=== PATIENT | male | born 1990 | race Caucasian/White ===

== ENCOUNTER 2023-03-30 16:04 | Inpatient (IN) ==
[2023-03-30] MEDS ORDERED: SODIUM CHLORIDE 0.9% 1000ML 1,000 ML IV STA (16:23)
--- NOTE | 2023-03-30 16:23 | ED Triage Note ---
Date of Service March 30, 2023 History of Present Illness This patient was briefly evaluated while in triage. An abbreviated physical exam was performed. This patient is a 32-year-old Male who presents to the ED for evaluation of severe abdominal pain since yesterday around 10 AM. The patient reports that the pain seems to be focused below the umbilicus. Patient denies any recent trauma or heavy lifting. Patient denies any difficulty with urination. Patient did take some milk of magnesia this morning around 4 AM, with diarrhea around 7 AM Physical Exam CONSTITUTIONAL: Healthy and well nourished. Patient appears in moderate discomfort. HEENT: No scleral icterus or conjunctival injection/pallor. RESPIRATORY: Clear to auscultation bilaterally with no wheezing, crackles, rhonchi or stridor. CARDIOVASCULAR: Regular rate and rhythm with no murmurs, rubs or gallops. GASTROINTESTINAL: Bowel sounds present in all quadrants. Patient has diffuse lower abdominal tenderness to palpation. No obvious McBurney's point tenderness or CVA tenderness. INTEGUMENTARY: No rash or other significant dermatologic conditions noted. HEMATOLOGIC: No ecchymosis or petechiae. PSYCHIATRIC: Positive affect. NEUROLOGIC: No focal neurologic deficits noted. Initial orders for labs and / or imaging were placed and patient was placed in the waiting area until a bed is available. Please see further documentation for the full ED course.
[2023-03-30] MEDS ORDERED: KETOROLAC TROMETHAMINE 15 MG/ML VIAL IV STA (17:22)
[2023-03-30] MEDS ORDERED: ONDANSETRON INJ 2 MG/ML 2 ML VIAL IV STA (17:22)
[2023-03-30 17:49] LABS: Basophils # (auto) 0.06 K/uL (0-0.2); Basophils % (auto) 0.3 %; Eosinophils # (auto) 0.02 K/uL (0-0.50); Eosinophils % (auto) 0.1 %; Hemoglobin 17.8 g/dl (14.0-18.0); Immature Granulocytes # (auto) 0.17 K/uL (0.01-0.20); Immature Granulocytes % (auto) 0.8 %; Lymphocytes # (auto) 1.29 K/uL (1.2-3.4); Lymphocytes % (auto) 6.3 %; Mean Corpuscular Hgb Conc 36.3 g/dL (32.0-36.0); Mean Corpuscular Volume 96.3 fL (80.0-100.0); Mean Platelet Volume 10.8 fL (9.4-12.4); Monocytes # (auto) 2.09 K/uL (0.11-0.59); Monocytes % (auto) 10.1 %; Neutrophils # (auto) 16.97 K/uL (1.40-6.50); Neutrophils % (auto) 82.4 %; Platelet Count 178 K/uL (130-400); RDW Coefficient of Variation 12.7 % (11.5-14.5); RDW Standard Deviation 44.9 fL (36.4-46.3); Red Blood Count 5.09 M/uL (4.70-6.10)
[2023-03-30 18:09] LABS: Albumin Globulin Ratio 1.4 (0.9-2); Albumin Level 4.6 gm/dl (3.4-5.0); BUN Creatinine Ratio 9.8 (10-20); Bilirubin,Total 2.1 mg/dl (0.2-1.0); Creatinine Clr Calc Pharmacy 143.4 ml/min; Est GFR (African American) 128.9 ml/min; Est GFR (Non-African American) 111.2 ml/min; Globulin 3.2 gm/dl (2.5-4.0); Total Protein 7.8 gm/dl (6.0-8.3)
[2023-03-30] MEDS ORDERED: SODIUM CHLORIDE 0.9% 1000ML 1,000 ML IV ONE (18:38)
--- NOTE | 2023-03-30 18:42 | Emergency Department Note ---
History of Present Illness General Chief complaint: Abdominal Pain Stated complaint: ABDOMINAL PAIN Time Seen by Provider: 03/30/23 18:29 History of Present Illness Maximum Pain Intensity: 8 32-year-old male presents emergency department with 1 day history of lower quadrant abdominal pain that started yesterday morning. Patient denies fever he states he did try milk of magnesia today without any relief. He states 1 episode of diarrhea. Patient states anorexia he denies fever denies urinary symptoms denies testicular pain. Patient's had episodes of abdominal pain in the past which were resolved with milk of magnesia. Patient states the pain is located in the lower quadrants rates it as moderate there is no radiation. There are no other mitigating or alleviating factors Allergies Allergy/AdvReac Type Severity Reaction Status Date / Time No Known Allergies Allergy Verified 03/30/23 17:21 Past Med/Surg History Social History Smoking Status: Current every day smoker Feels Safe at Home: Yes Immunizations: Past medical history is hypertension Review of Systems A total of 10 systems reviewed and were otherwise negative Constitutional: no fever Gastrointestinal: + abdominal pain Physical Exam Vital Signs Vital Signs - 24 hr 03/30/23 16:20 03/30/23 18:44 Temperature 36.8 C 37.3 C Temperature Source Temporal Artery Scan Oral Pulse Rate 127 H Pulse Rate [Right Finger] 106 H Pulse Rhythm [Right Finger] Regular Pulse Strength [Right Finger] Normal Respiratory Rate 18 19 Respiratory Effort / Characteristics Non-Labored Spontaneous Non-Labored Spontaneous Respiratory Depth Normal Normal Respiratory Pattern Regular Regular Blood Pressure 148/110 H Blood Pressure [Left Arm] 141/100 H Blood Pressure Mean 122 Blood Pressure Mean [Left Arm] 113 Blood Pressure Position Sitting Blood Pressure Position [Left Arm] Lying Pulse Oximetry 99 95 Oxygen Delivery Method Room Air Room Air Sepsis Recent Fever Within 48 Hours No Sepsis New/Unexplained Change in Mental Status N/A Sepsis Action Taken by Nursing No Action Required GENERAL: Patient is awake alert in no acute distress patient is resting comfortably and showing no signs of anxiety EYES: The conjunctivae are clear. The pupils are round and reactive. EARS, NOSE, MOUTH AND THROAT: The nose is without any evidence of any deformity. Mucous membranes are moist. Tongue is midline. NECK: The neck is nontender and supple. RESPIRATORY: Normal respiratory effort is noted there is no evidence of wheezing rhonchi or rales CARDIOVASCULAR: Regular rate and rhythm noted there no murmurs rubs or gallops normal S1 normal S2. GASTROINTESTINAL: The abdomen is soft. Abdomen is tender in the bilateral lower quadrants there is no rebound rigidity or guarding or bowel sounds present BACK: No midline tenderness or or step-off noted range of motion in flexion extension as well as rotation no signs of muscle spasm noted MUSCULOSKELETAL/EXTREMITIES: There is no evidence of gross deformity full range of motion is noted in the hips and shoulders. SKIN: There is no obvious evidence of any rash. There are no petechiae, pallor or cyanosis noted. NEUROLOGIC: Patient is awake alert and oriented x3 strength is symmetric Course Consultations Consultation #1: Case was discussed with Thuy from surgery they will see the patient in consultation Time: 19:24 Consultation #2: [facility]: 19:24 Administered Medications Sodium Chloride (Nss 1000ml) 1,000 mls @ 999 mls/hr IV .Q1H1M ONE Stop: 03/30/23 19:38 Last Admin: 03/30/23 18:47 Dose: 999 mls/hr Documented By: ELIZABETH Discontinued Medications Sodium Chloride (Nss 1000ml) 1,000 mls @ 999 mls/hr IV .Q1H1M STA Stop: 03/30/23 17:23 Last Admin: 03/30/23 18:46 Dose: Not Given Documented By: ELIZABETH Ioversol (Optiray 320 100ml) 93 ml IV ONCE ONE Stop: 03/30/23 19:02 Last Admin: 03/30/23 19:02 Dose: 93 ml Documented By: MARCIO Ketorolac Tromethamine (Ketorolac Tromethamine 15 Mg/Ml Vial) 15 mg IV NOW STA Stop: 03/30/23 17:23 Last Admin: 03/30/23 17:26 Dose: 15 mg Documented By: SHAWN Ondansetron HCl (Ondansetron Inj 2 Mg/Ml 2 Ml Vial) 4 mg IV NOW STA Stop: 03/30/23 17:23 Last Admin: 03/30/23 17:25 Dose: 4 mg Documented By: SHAWN Medical Decision Making Medical Records Attestation: I reviewed the patient's medical records. Home Medications Current Medication List: was personally reviewed by me Laboratory Data Attestation: I reviewed the patient's lab results. Patient has leukocytosis as interpreted by me 03/30/23 17:22 03/30/23 17:22 Lab Results 03/30/23 03/30/23 Range/Units 17:22 17:22 WBC 20.60 H (4.8-10.8) K/ul RBC 5.09 (4.70-6.10) M/uL Hgb 17.8 (14.0-18.0) g/dl Hct 49.0 (42.0-52.0) % MCV 96.3 (80.0-100.0) fL MCH 35.0 H (25.0-34.0) pg MCHC 36.3 H (32.0-36.0) g/dL RDW Std Deviation 44.9 (36.4-46.3) fL RDW Coeff of Urmila 12.7 (11.5-14.5) % Plt Count 178 (130-400) K/uL MPV 10.8 (9.4-12.4) fL Immature Gran % (Auto) 0.8 % Neut % (Auto) 82.4 % Lymph % (Auto) 6.3 % Cass % (Auto) 10.1 % Eos % (Auto) 0.1 % Baso % (Auto) 0.3 % Neut # (Auto) 16.97 H (1.40-6.50) K/uL Lymph # (Auto) 1.29 (1.2-3.4) K/uL Cass # (Auto) 2.09 H (0.11-0.59) K/uL Eos # (Auto) 0.02 (0-0.50) K/uL Baso # (Auto) 0.06 (0-0.2) K/uL Immature Gran # (Auto) 0.17 (0.01-0.20) K/uL Sodium 132 L (136-145) mmol/L Potassium 4.0 (3.5-5.1) mmol/L Chloride 97 L (98-107) mmol/L Carbon Dioxide 25 (21-32) mmol/L Anion Gap 10 (3-11) BUN 9 (6-23) mg/dl Creatinine 0.92 (0.6-1.4) mg/dl Est Cr Clr Drug Dosing 143.4 ml/min Est GFR ( Amer) 128.9 ml/min Est GFR (Non-Af Amer) 111.2 ml/min BUN/Creatinine Ratio 9.8 L (10-20) Glucose 109 H (70-99(Fasting)) mg/dl Calcium 10.0 (8.6-10.3) mg/dl Total Bilirubin 2.1 H (0.2-1.0) mg/dl AST 14 (13-39) U/L ALT 27 (7-52) U/L Alkaline Phosphatase 66 (34-104) U/L Total Protein 7.8 (6.0-8.3) gm/dl Albumin 4.6 (3.4-5.0) gm/dl Globulin 3.2 (2.5-4.0) gm/dl Albumin/Globulin Ratio 1.4 (0.9-2) Lipase 3 L (11-82) U/L Imaging Data Radiologist's Impression: Abdomen/Pelvis CT 03/30/23 16:23 CR Exam(s): CT ABDOMEN + PELVIS With Contrast IV Amt: 93ml EXAM: CT Abdomen and Pelvis With Intravenous Contrast CLINICAL HISTORY: Reason for exam: Lower abd pain. TECHNIQUE: Axial computed tomography images of the abdomen and pelvis with intravenous contrast. CTDI is 27.21 mGy and DLP is 1559.19 mGy-cm. Automated exposure control was utilized for the study. A dose lowering technique was utilized adhering to the principles of ALARA. CONTRAST: Patient received 93ml of IV contrast COMPARISON: None. FINDINGS: Lung bases: Unremarkable. No mass. No consolidation. ABDOMEN: Liver: Unremarkable. No mass. Gallbladder and bile ducts: Unremarkable. No calcified stones. No ductal dilation. Pancreas: Unremarkable. No mass. No ductal dilation. Spleen: Unremarkable. No splenomegaly. Adrenals: Unremarkable. No mass. Kidneys and ureters: Unremarkable. No solid mass. No hydronephrosis. Stomach and bowel: Acute diverticulitis of the mid sigmoid colon with wall thickening and pericolic fat stranding. Evidence of microperforation with small foci of gas in the adjacent sigmoid mesentery. Left hemicolon diverticulosis. No bowel obstruction. PELVIS: Appendix: Normal appendix. Bladder: Unremarkable. No mass. Reproductive: Unremarkable as visualized. ABDOMEN and PELVIS: Intraperitoneal space: Trace free air and ascites in the lower abdomen and pelvis related to diverticulitis. No abscess. Bones/joints: No acute fracture. No dislocation. Soft tissues: Unremarkable. Vasculature: Unremarkable. No abdominal aortic aneurysm. Lymph nodes: Unremarkable. No enlarged lymph nodes. IMPRESSION: Acute diverticulitis of the mid sigmoid colon with wall thickening and pericolic fat stranding. Evidence of microperforation with small foci of gas in the adjacent sigmoid mesentery. No drainable abscess. Communications: Call Doctor Other Electronically signed by: Sidney Castanon M.D. 03/30/23 19:13 PM MDM Narrative Medical decision making differential diagnosis includes appendicitis, colitis, gastroenteritis, metabolic derangement, dehydration, electrolyte abnormality Plan is to check labs, CT abdomen pelvis, IV fluids, patient was given Toradol Labs were initiated under provider in triage protocols. Patient is currently pending a CT at 1842 Impression & Plan Perforation of sigmoid colon due to diverticulitis Discharge Plan Visit Data Chief Complaint: Abdominal Pain Stated Complaint: ABDOMINAL PAIN ED Provider: Marin Calhoun Discharge Problem: Perforation of sigmoid colon due to diverticulitis Patient Disposition: Admitted As Inpatient Forms Stand Alone Forms: [facility] Referrals Referrals: PCP,NO [Physician] -
[2023-03-30] MEDS ORDERED: OPTIRAY 320 100ml IV ONE (19:01)
--- NOTE | 2023-03-30 19:15 | CT Scan Report ---
Exam(s): CT ABDOMEN + PELVIS With Contrast IV Amt: 93ml EXAM: CT Abdomen and Pelvis With Intravenous Contrast CLINICAL HISTORY: Reason for exam: Lower abd pain. TECHNIQUE: Axial computed tomography images of the abdomen and pelvis with intravenous contrast. CTDI is 27.21 mGy and DLP is 1559.19 mGy-cm. Automated exposure control was utilized for the study. A dose lowering technique was utilized adhering to the principles of ALARA. CONTRAST: Patient received 93ml of IV contrast COMPARISON: None. FINDINGS: Lung bases: Unremarkable. No mass. No consolidation. ABDOMEN: Liver: Unremarkable. No mass. Gallbladder and bile ducts: Unremarkable. No calcified stones. No ductal dilation. Pancreas: Unremarkable. No mass. No ductal dilation. Spleen: Unremarkable. No splenomegaly. Adrenals: Unremarkable. No mass. Kidneys and ureters: Unremarkable. No solid mass. No hydronephrosis. Stomach and bowel: Acute diverticulitis of the mid sigmoid colon with wall thickening and pericolic fat stranding. Evidence of microperforation with small foci of gas in the adjacent sigmoid mesentery. Left hemicolon diverticulosis. No bowel obstruction. PELVIS: Appendix: Normal appendix. Bladder: Unremarkable. No mass. Reproductive: Unremarkable as visualized. ABDOMEN and PELVIS: Intraperitoneal space: Trace free air and ascites in the lower abdomen and pelvis related to diverticulitis. No abscess. Bones/joints: No acute fracture. No dislocation. Soft tissues: Unremarkable. Vasculature: Unremarkable. No abdominal aortic aneurysm. Lymph nodes: Unremarkable. No enlarged lymph nodes. IMPRESSION: Acute diverticulitis of the mid sigmoid colon with wall thickening and pericolic fat stranding. Evidence of microperforation with small foci of gas in the adjacent sigmoid mesentery. No drainable abscess. Communications: Call Doctor Other Electronically signed by: Sidney Castanon M.D. 03/30/23 19:13 PM
[2023-03-30] MEDS ORDERED: PIPERACILLIN/TAZOBACTAM 4.5 GM in DEXTROSE 5% 100 ML IV ONE (19:16)
--- NOTE | 2023-03-30 20:10 | History & Physical Report ---
Date of Service March 30, 2023 Assessment & Plan (1) Sepsis: (2) Diverticulitis of colon with perforation: Plan: Patient is 32-year-old male with PMH HTN, GERD, tobacco use presented to ER with complaint of lower abdominal pain and anorexia that started yesterday. In ER Afebrile, P: 127, R: 18, BP 148/110, 99% on room air. WBC: 20.6, lactate: 0.8, lipase WNL, T bili: 2.1, LFTs WNL CT abd/pelvis:Acute diverticulitis of the mid sigmoid colon with wall thickening and pericolic fat stranding. Evidence of microperforation with small foci of gas in the adjacent sigmoid mesentery. No drainable abscess. In ER given 1L NSS, Toradol 15 mg IV, Zofran, Zosyn Blood cultures pending NPO Continue Zosyn IVF General surgery consult CBC, CMP in am (3) Hyponatremia: Plan: Na: 132 Poor oral intake past 24 hours (4) HTN (hypertension): Plan: In ER BP elevated. Did not have home lisinopril today and is in pain Monitor BP Continue lisinopril (5) GERD (gastroesophageal reflux disease): Plan: Continue PPI (6) Tobacco use: Plan: Denies nicotine patch Smoking cessation encouraged (7) Elevated bilirubin: Plan: T bili: 2.1. LFTs WNL CT abd/pelvis without obstruction Direct bilirubin pending PT INR, PTT pending (8) Alcohol use: Plan: 6-10 drinks five times a week. Last drink reported 2 days ago Alcohol withdrawal protocol Monitor for withdrawal Start folic acid, thiamine, multivitamin daily ETOH cessation encouraged DVT Prophylaxis SCDs Follows with Jace To PA-C [facility] for routine care Pt was seen and care coordinated with Dr Porras. See addendum I spent a total of 76 minutes reviewing notes, outpatient records, labs, medication, coordinating, documenting and providing care for this patient excluding time spent in the performance of separately billed services. History of Present Illness Chief Complaint: Abdominal pain Primary Care Provider: Jace To PA-C Patient is 32-year-old male with PMH HTN, GERD, tobacco use presented to ER with complaint of lower abdominal pain that started yesterday. Patient reports pain is sharp and across mid lower and left lower abdomen. Pain has been persistent. Also reports some nausea. Denies vomiting. Reports decreased appetite. States last ate yesterday. Did not eat or drink today. Did not have lisinopril today. No BM yesterday. Reports BM this morning with liquid stool. Reports drinks 6-10 beers 5 times a week. Last drink 2 days ago. Denies history of alcohol withdrawal, seizures or DTs. Denies fever/chills, diaphoresis, melena, hematochezia, HAYNES, dizziness, syncope, CP, SOB, cough, weakness, extremity edema, rashes, urinary symptoms. Denies history of abdominal surgery. In ER found to have leukocytosis, CT abdomen pelvis consistent with diverticulitis with microperforation. Patient being admitted to hospital for further treatment and evaluation. Allergies Allergy/AdvReac Type Severity Reaction Status Date / Time No Known Allergies Allergy Verified 03/30/23 17:21 Home Medications Medication Instructions Recorded Confirmed Type lisinopril 20 mg tablet 20 mg PO QAM 03/30/23 03/30/23 History omeprazole 20 mg tablet,delayed 20 mg PO DAILY 03/30/23 03/30/23 History release Past Med/Surg History Medical History GERD (gastroesophageal reflux disease) HTN (hypertension) Tobacco use Surgical History (Updated 03/30/23 @ 20:34 by Kourtney Lewis PA-C) No pertinent past surgical history Family History (Updated 03/30/23 @ 20:35 by Kourtney Lewis PA-C) Other Alzheimer disease Dyslipidemia Social History (Updated 03/30/23 @ 20:35 by Kourtney Lewis PA-C) Smoking Status: Current every day smoker Cigarettes Per Day: 10; Hx Alcohol Use: Yes (6-10 beers 5 times a week) Hx Substance Use: No Feels Safe at Home: Yes Review of Systems Review of Systems: All systems reviewed & are unremarkable except as noted in HPI & below Physical Exam Physical Exam: General: +ill appearing, overweight male Head: normocephalic, atraumatic Eyes: conjunctiva non-injected, anicteric ENT: normal inspection external ears, nose, mucous membranes dry Neck: supple, trachea midline Lungs: clear, no respiratory distress, no wheezing/rhonchi/rales CV: RRR, no murmur, no pretibial edema Abd: normal BS, soft, + diffuse tenderness to palpation, greater tenderness to LLQ with some guarding Ext: no cyanosis, no calf tenderness Neuro: A&O x 3, no focal deficits noted, normal affect Skin: warm, dry Results & Data Results & Data Vital Signs (Past 12 Hours) Vital Signs Temp Pulse Pulse Resp BP BP Pulse Ox 03/30/23 18:44 37.3 C 106 H 19 141/100 H 95 03/30/23 16:20 36.8 C 127 H 18 148/110 H 99 O2 Del Method 03/30/23 18:44 Room Air 03/30/23 16:20 Room Air Laboratory Results Short CBC 03/30/23 Range/Units 17:22 WBC 20.60 H (4.8-10.8) K/ul Hgb 17.8 (14.0-18.0) g/dl Hct 49.0 (42.0-52.0) % Plt Count 178 (130-400) K/uL BMP 03/30/23 17:22 Sodium 132 L Potassium 4.0 Chloride 97 L Carbon Dioxide 25 BUN 9 Creatinine 0.92 Glucose 109 H Calcium 10.0 Liver Function 03/30/23 Range/Units 17:22 Total Bilirubin 2.1 H (0.2-1.0) mg/dl AST 14 (13-39) U/L ALT 27 (7-52) U/L Alkaline Phosphatase 66 (34-104) U/L Albumin 4.6 (3.4-5.0) gm/dl Diagnostic Findings Abdomen/Pelvis CT 03/30/23 16:23 CR Exam(s): CT ABDOMEN + PELVIS With Contrast IV Amt: 93ml EXAM: CT Abdomen and Pelvis With Intravenous Contrast CLINICAL HISTORY: Reason for exam: Lower abd pain. TECHNIQUE: Axial computed tomography images of the abdomen and pelvis with intravenous contrast. CTDI is 27.21 mGy and DLP is 1559.19 mGy-cm. Automated exposure control was utilized for the study. A dose lowering technique was utilized adhering to the principles of ALARA. CONTRAST: Patient received 93ml of IV contrast COMPARISON: None. FINDINGS: Lung bases: Unremarkable. No mass. No consolidation. ABDOMEN: Liver: Unremarkable. No mass. Gallbladder and bile ducts: Unremarkable. No calcified stones. No ductal dilation. Pancreas: Unremarkable. No mass. No ductal dilation. Spleen: Unremarkable. No splenomegaly. Adrenals: Unremarkable. No mass. Kidneys and ureters: Unremarkable. No solid mass. No hydronephrosis. Stomach and bowel: Acute diverticulitis of the mid sigmoid colon with wall thickening and pericolic fat stranding. Evidence of microperforation with small foci of gas in the adjacent sigmoid mesentery. Left hemicolon diverticulosis. No bowel obstruction. PELVIS: Appendix: Normal appendix. Bladder: Unremarkable. No mass. Reproductive: Unremarkable as visualized. ABDOMEN and PELVIS: Intraperitoneal space: Trace free air and ascites in the lower abdomen and pelvis related to diverticulitis. No abscess. Bones/joints: No acute fracture. No dislocation. Soft tissues: Unremarkable. Vasculature: Unremarkable. No abdominal aortic aneurysm. Lymph nodes: Unremarkable. No enlarged lymph nodes. IMPRESSION: Acute diverticulitis of the mid sigmoid colon with wall thickening and pericolic fat stranding. Evidence of microperforation with small foci of gas in the adjacent sigmoid mesentery. No drainable abscess. Communications: Call Doctor Other Electronically signed by: Sidney Castanon M.D. 03/30/23 19:13 PM Code Status & VTE Plan VTE Prophylaxis Plan VTE Prophylaxis will be ordered: Yes Supervising Physician Co-Signing Physician Notes I have seen and examined the patient and have discussed the case with the provider above. I agree with the assessment and plan as stated with the following exceptions. 32-year-old man presents with acute lower abdominal pain for 2 days with work-up revealing acute diverticulitis of the sigmoid colon with microperforation. He meets sepsis criteria. He denies any fevers or chills and reports his pain is approximately 5 out of 10. He does admit to heavy alcohol intake, smoking and a diet high in red meat. Family history reveals no evidence of colon cancer. Mother reports having her colonoscopy recently and no diverticula were noted. Patient denies any history of bowel symptoms. On exam blood pressure is 160/100 pulse of 100. He appears to be in moderate distress. He is mentating clearly. He is oxygenating well on room air. Cardiac exam reveals tachycardic rate with regular rhythm. S1-S2 heard with no murmurs. Lungs are clear to auscultation bilaterally. Abdomen is soft with tenderness in the suprapubic> right lower quadrant> left lower quadrant. No distention. There is no guarding. No gross focal neuromuscular deficits. Work-up includes a CBC with evidence of leukocytosis. WBC is 20 K with a left shift. Sodium is 132, renal function is normal. Serum osm is low normal. Bilirubin is 2.1 with direct bilirubin pending and urinalysis pending. CT a/p reveals a normal liver, gallbladder and pancreas. Lipase is normal. Sigmoid diverticulitis with microperforation is present. 1. Sepsis 2/2 acute complicated sigmoid diverticulitis 2. Hyperbilirubinemia in setting of sepsis and heavy alcohol use 3. Smoking 4. Morbid obesity 5. Hypertension 32 yo alcoholic presents with acute diverticulitis. He reports pain and symptoms for two days. He was counseled that a diet high in red meat, smoking and alcohol use may contribute to diverticulitis and cessation was recommended. Agree with Zosyn and surgery consult. OK for sips and chips until surgery evaluates and advances diet. Blood pressure is elevated tonight as he didn't take his lisinopril this morning, and last alcoholic drink was two days ago, so this may be evidence of withdrawal. AWSS scale ordered as he has an elevated risk for withdrawal. Elevated bilirubin is likely 2/2 sepsis vs alcohol use vs Gilbert's. No prior records are present to evaluate trend. Awaiting fractionated bilirubin level. Cont with IVF, abx and ok for home once eating, feeling better and cleared by surgery. DO Vern
[2023-03-30 20:16] LABS: Magnesium 1.7 mg/dl (1.7-2.4)
[2023-03-30] MEDS ORDERED: MoRPHine SULFATE 4 MG/ML 1 ML CARP\\VIAL IV STA (20:52)
[2023-03-30 22:21] LABS: Bilirubin Direct 0.4 mg/dl (0-0.2)
[2023-03-30 22:26] LABS: INR 1.1 (0.9-1.1); Partial Thromboplastin Ratio 1.1; Partial Thromboplastin Time 31.1 Seconds (21.0-31.0)
[2023-03-30 22:35] LABS: Appearance Urine Clear (Clear); Bilirubin Urine Negative (Negative); Blood Urine Negative (Negative); Color Urine Yellow; Glucose Urine UA Negative (Negative); Ketones Urine Trace (Negative); Leukocyte Esterase Urine Negative (Negative); Nitrite Urine Negative (Negative); Protein Urine Negative (Negative); Specific Gravity Urine > 1.045 (1.000-1.030); Urobilinogen Urine Negative (Negative); pH Urine 6.5 (4.5-7.5)
[2023-03-30] MEDS ORDERED: GABAPENTIN 1200MG ALCOHOL WITHDRAWAL LOAD PO STA (22:35)
[2023-03-30] MEDS ORDERED: LORazepam 2 MG/1 ML VIAL IV PRN (22:35)
[2023-03-30] MEDS ORDERED: ONDANSETRON INJ 2 MG/ML 2 ML VIAL IV PRN (22:35)
[2023-03-30] MEDS: MoRPHine SULFATE 4 MG/ML 1 ML CARP\\VIAL IV PRN (22:55)
[2023-03-30] MEDS ORDERED: THIAMINE HCL 100 MG, FOLIC ACID 1 MG in SODIUM CHLORIDE 0.9% 1000ML 1,000 ML IV SCH (23:00)
[2023-03-30] MEDS ORDERED: GABAPENTIN 600 MG TAB PO ONE (23:00)
[2023-03-30] MEDS ORDERED: CEROVITE ADV FORMULA TAB PO ONE (23:00)
[2023-03-31] MEDS: PIPERACILLIN/TAZOBACTAM 4.5 GM in DEXTROSE 5% 100 ML IV SCH ×3 (01:06→18:30)
[2023-03-31] MEDS: SODIUM CHLORIDE 0.9% 1000ML 1,000 ML IV SCH ×2 (01:06→08:09)
[2023-03-31] MEDS: MoRPHine SULFATE 4 MG/ML 1 ML CARP\\VIAL IV PRN ×2 (03:31→07:47)
[2023-03-31] MEDS: GABAPENTIN 600 MG TAB PO SCH ×3 (05:10→21:36)
[2023-03-31] MEDS: FOLIC ACID 1 MG TAB PO SCH (07:50)
[2023-03-31] MEDS: PANTOprazole 40 MG TAB PO SCH (07:50)
[2023-03-31] MEDS: THIAMINE HCL 100 MG TAB PO SCH (07:50)
[2023-03-31] MEDS: lisinopril 20 MG TAB PO SCH (07:50)
[2023-03-31 07:51] LABS: Estimated Average Glucose 94 mg/dl; Hemoglobin A1C 4.9 % (4.5-5.6)
--- NOTE | 2023-03-31 08:37 | XRay Report ---
XR chest 1V portable HISTORY: hyponatremia COMPARISON: None. FINDINGS: The lungs are clear. Cardiac silhouette is normal in size. No pleural effusions. No pneumot horax. IMPRESSION: No acute process. ACT 112: Negative or not required by law. Electronically signed by: Brennon Gómez M.D. 03/31/2023 8:36 AM
[2023-03-31 08:54] LABS: Albumin Globulin Ratio 1.3 (0.9-2); Albumin Level 3.8 gm/dl (3.4-5.0); BUN Creatinine Ratio 9.5 (10-20); Bilirubin,Total 1.5 mg/dl (0.2-1.0); Calcium 8.6 mg/dl (8.6-10.3); Creatinine Clr Calc Pharmacy 156.9 ml/min; Est GFR (African American) 136.2 ml/min; Est GFR (Non-African American) 117.5 ml/min; Globulin 2.9 gm/dl (2.5-4.0); Magnesium 1.9 mg/dl (1.7-2.4); Phosphorus 2.4 mg/dl (2.5-4.9); Potassium 3.7 mmol/L (3.5-5.1); Total Protein 6.7 gm/dl (6.0-8.3)
[2023-03-31 09:01] LABS: Hematocrit (blood only) 40.9 % (42.0-52.0); Hemoglobin 14.9 g/dl (14.0-18.0); Mean Corpuscular Hgb Conc 36.4 g/dL (32.0-36.0); Mean Platelet Volume 10.7 fL (9.4-12.4); Platelet Count 146 K/uL (130-400); RDW Coefficient of Variation 12.7 % (11.5-14.5); RDW Standard Deviation 44.8 fL (36.4-46.3); Red Blood Count 4.26 M/uL (4.70-6.10); White Blood Count 14.99 K/ul (4.8-10.8)
--- NOTE | 2023-03-31 11:42 | Surgery Consultation ---
Date of Consultation March 31, 2023 Assessment & Plan (1) Acute diverticulitis: HD 1. The patient feels improvement this am. Leukocytosis is improving. Low grade fever this am. Continue NPO, IVF (change to maintenance fluid today). May have chemical DVT ppx, SCDs while in bed. Ambulate as tolerated. Measure I/O's Continue antibiotics. F/U am labs. Present on Admission?: Yes History of Present Illness Reason for Consultation: Abdominal pain Attending Physician: Alejo Celestin MD History of Present Illness Patient is 32-year-old male with PMH HTN, GERD, tobacco an alcohol use who presented to ER with complaint of lower abdominal pain that started yesterday. Patient reports pain is sharp and across mid lower and left lower abdomen.In the ED he was found to have a leukocytosis to over 20,000. CT revealed a sigmoid diverticulitis with microperforation. He was admitted to medicine for conservative management and surgery was consulted. Today he admits to feeling improved this am with decreased pain. He says he is not really passing flatus. Denies nausea, vomiting. Reports he drinks 6-10 beers 5 times a week. Last drink 2 days ago. Denies history of alcohol withdrawal, seizures or DTs. Denies fever/chills, diaphoresis, melena, hematochezia, HAYNES, dizziness, syncope, CP, SOB, cough, weakness, extremity edema, rashes, urinary symptoms. Denies history of abdominal surgery. Allergies Allergy/AdvReac Type Severity Reaction Status Date / Time No Known Allergies Allergy Verified 03/30/23 17:21 Home Medications Medication Instructions Recorded Confirmed Type lisinopril 20 mg tablet 20 mg PO QAM 03/30/23 03/30/23 History omeprazole 20 mg tablet,delayed 20 mg PO DAILY 03/30/23 03/30/23 History release Patient History Medical History GERD (gastroesophageal reflux disease) HTN (hypertension) Tobacco use Surgical History (Updated 03/30/23 @ 20:34 by Kourtney Lewis PA-C) No pertinent past surgical history Family History (Updated 03/30/23 @ 20:35 by Kourtney Lewis PA-C) Other Alzheimer disease Dyslipidemia Social History (Updated 03/30/23 @ 20:35 by Kourtney Schreckengost, PA-C) Smoking Status: Current every day smoker Cigarettes Per Day: 10; Tobacco Cessation Education Requested by Patient: No Hx Alcohol Use: Yes Alcohol type: beer Hx Substance Use: No Preferred Language: Wolof Communication Ability: Effective Cook Restaurant Required: No Beliefs That Will Affect Care: None Current Living Situation: Alone Feels Safe at Home: Yes Safety Concerns: Feels Safe At This Time Assistive Devices: None Review of Systems Review of Systems: As mentioned above Physical Exam Constitutional: healthy appearing and cooperative; no acute distress and not ill appearing Respiratory: normal respiratory effort; no respiratory distress, no labored breathing and does not use accessory muscles Gastrointestinal (Abdomen): Percussion/Palpation: + abdomen tender (LLQ and suprapubic. ) and abdomen soft; no guarding and abdomen not rigid Neurologic: awake; no focal motor deficits, not confused and not obtunded Results & Data Vital Signs (Past 12 Hours) Vital Signs Temp Pulse Pulse Resp BP BP Pulse Ox 03/31/23 11:19 37.6 C H 91 H 18 142/83 H 95 03/31/23 07:38 37.5 C 97 H 18 149/79 H 96 03/31/23 07:23 102 H 03/31/23 04:12 37.8 C H 95 H 18 157/91 H 96 O2 Del Method 03/31/23 11:19 Room Air 03/31/23 07:38 Room Air 03/31/23 07:23 03/31/23 04:12 Room Air Laboratory Results WBC decreased to 14.99 PG Care Time/CCT Total # of Minutes Spent Total Time Spent with Patient: Total time spent is greater than 50% in coordination of care (as documented) at patient's floor/unit and/or counseling patient: Coding Level of Care Code 09744 OFFICE CONSULT LVL Diagnoses Acute diverticulitis K57.92
[2023-03-31] MEDS: HYDROmorphone INJ 1 MG/ML SYRINGE IV PRN ×3 (12:19→21:36)
[2023-03-31] MEDS: POT PHOSPHATE MONOBASIC W/ SOD TAB PO SCH ×3 (12:23→21:36)
[2023-03-31] MEDS: D5W AND 1/2NSS 1,000 ML IV SCH ×2 (14:13→21:36)
--- NOTE | 2023-03-31 17:09 | Hospitalist Progress Note ---
Date of Service March 31, 2023 Assessment & Plan (1) Sepsis: (2) Diverticulitis of colon with perforation: Plan: Patient is 32-year-old male with PMH HTN, GERD, tobacco use presented to ER with complaint of lower abdominal pain and anorexia that started yesterday. Acute diverticulitis with perforation --CT abd/pelvis:Acute diverticulitis of the mid sigmoid colon with wall thickening and pericolic fat stranding. Evidence of microperforation with small foci of gas in the adjacent sigmoid mesentery. No drainable abscess. -- Continue IV Zosyn, IV fluids, bowel rest --Blood culture pending Pain control Appreciate surgery input Leukocytosis trending down (3) Hyponatremia: Plan: Sodium 132 today Likely due to poor oral intake Normal TSH Monitor sodium levels (4) HTN (hypertension): Plan: Continue lisinopril Monitor BP Hypophosphatemia Replete electrolytes as needed (5) GERD (gastroesophageal reflux disease): Plan: Continue PPI (6) Tobacco use: Plan: Denies nicotine patch Smoking cessation encouraged (7) Elevated bilirubin: Plan: Monitor LFTs (8) Alcohol use: Plan: 6-10 drinks five times a week. Monitor for withdrawal Continue thiamine, folic acid, gabapentin per protocol ETOH cessation encouraged DVT Prophylaxis SCDs for now Admission and Anticipated Discharge Date Admission Date: March 30, 2023 Subjective Patient is seen and examined at bedside Abdominal pain improving Denies any nausea, vomiting, chest pain, dyspnea, dizziness Had poor sleep overnight No other complaints Review of Systems Review of Systems: All systems reviewed & are unremarkable except as noted in Subjective Physical Exam Physical Exam: Physical Exam: Vitals signs as noted above General Appearance:Obese, no apparent distress Head: normocephalic, Atraumatic Eyes: normal inspection, EOMI Neck: supple, Trachea midline Respiratory/Chest: Normal breath sounds, CTA, No accessory muscle use Cardiovascular: S1, S2, No murmur Abdomen/GI:Soft, Mild lower abd tender, Bowel sounds present Extremities/Musculoskeletal:normal inspection, no edema Neurologic/Psych:AAOX3, grossly no focal neurological deficits Skin: normal color, warm Results & Data Results & Data Vital Signs (Past 12 Hours) Vital Signs Temp Pulse Pulse Resp BP BP Pulse Ox 03/31/23 15:21 37.0 C 86 18 131/80 95 03/31/23 11:19 37.6 C H 91 H 18 142/83 H 95 03/31/23 07:38 37.5 C 97 H 18 149/79 H 96 03/31/23 07:23 102 H O2 Del Method 03/31/23 15:21 Room Air 03/31/23 11:19 Room Air 03/31/23 07:38 Room Air 03/31/23 07:23 Laboratory Results Short CBC 03/30/23 03/31/23 Range/Units 17:22 08:19 WBC 20.60 H 14.99 H (4.8-10.8) K/ul Hgb 17.8 14.9 D (14.0-18.0) g/dl Hct 49.0 40.9 L (42.0-52.0) % Plt Count 178 146 (130-400) K/uL BMP 03/30/23 03/31/23 17:22 08:04 Sodium 132 L 132 L Potassium 4.0 3.7 Chloride 97 L 101 Carbon Dioxide 25 25 BUN 9 8 Creatinine 0.92 0.84 Glucose 109 H 84 Calcium 10.0 8.6 Liver Function 03/30/23 03/31/23 Range/Units 17:22 08:04 Total Bilirubin 2.1 H 1.5 H (0.2-1.0) mg/dl Direct Bilirubin 0.4 H (0-0.2) mg/dl AST 14 14 (13-39) U/L ALT 27 21 (7-52) U/L Alkaline Phosphatase 66 56 (34-104) U/L Albumin 4.6 3.8 (3.4-5.0) gm/dl Urine 03/30/23 Range/Units 21:20 Urine Color Yellow Urine Appearance Clear (Clear) Urine pH 6.5 (4.5-7.5) Ur Specific [place] > 1.045 H (1.000-1.030) Urine Protein Negative (Negative) Urine Glucose (UA) Negative (Negative)
[2023-04-01] MEDS: PIPERACILLIN/TAZOBACTAM 4.5 GM in DEXTROSE 5% 100 ML IV SCH ×3 (01:26→17:18)
[2023-04-01] MEDS: HYDROmorphone INJ 1 MG/ML SYRINGE IV PRN ×6 (01:27→20:37)
[2023-04-01] MEDS: GABAPENTIN 600 MG TAB PO SCH ×2 (04:20→11:54)
[2023-04-01] MEDS: D5W AND 1/2NSS 1,000 ML IV SCH ×2 (04:54→13:53)
[2023-04-01] MEDS: MULTIVITAMIN TAB PO SCH (08:00)
[2023-04-01] MEDS: PANTOprazole 40 MG TAB PO SCH (08:00)
[2023-04-01] MEDS: POT PHOSPHATE MONOBASIC W/ SOD TAB PO SCH ×2 (08:00→11:53)
[2023-04-01] MEDS: FOLIC ACID 1 MG TAB PO SCH (08:00)
[2023-04-01] MEDS: lisinopril 20 MG TAB PO SCH (08:00)
[2023-04-01] MEDS: THIAMINE HCL 100 MG TAB PO SCH (08:01)
[2023-04-01 08:36] LABS: Hematocrit (blood only) 38.4 % (42.0-52.0); Hemoglobin 13.8 g/dl (14.0-18.0); Mean Corpuscular Hemoglobin 34.5 pg (25.0-34.0); Mean Corpuscular Hgb Conc 35.9 g/dL (32.0-36.0); Mean Platelet Volume 10.7 fL (9.4-12.4); Platelet Count 168 K/uL (130-400); RDW Coefficient of Variation 12.5 % (11.5-14.5); RDW Standard Deviation 44.2 fL (36.4-46.3); White Blood Count 11.52 K/ul (4.8-10.8)
[2023-04-01 09:48] LABS: Anion Gap 7 (3-11); BUN Creatinine Ratio 6.2 (10-20); Blood Urea Nitrogen 4 mg/dl (6-23); Calcium 8.9 mg/dl (8.6-10.3); Carbon Dioxide 27 mmol/L (21-32); Chloride 98 mmol/L (98-107); Creatinine Clr Calc Pharmacy 202.7 ml/min; Est GFR (African American) > 150.0 ml/min; Est GFR (Non-African American) 130.6 ml/min; Glucose 97 mg/dl (70-99(Fasting)); Phosphorus 3.6 mg/dl (2.5-4.9); Potassium 3.6 mmol/L (3.5-5.1); Sodium 132 mmol/L (136-145)
--- NOTE | 2023-04-01 11:13 | Surgery Progress Note ---
Date of Service April 01, 2023 Assessment & Plan (1) Acute diverticulitis: Plan: Uncomplicated diverticulitis. Afebrile, HD stable, still with leukocytosis but improving at 11,000 from 14,000 Continue NPO for now with IVF and IV antibiotics May have chemical DVT ppx, continue ambulation F/U labs and abdominal exam in the am Admission and Anticipated Discharge Date Admission Date: March 30, 2023 Subjective Patient seen today ambulating in the hallway. He claims that he feels better today with less abdominal pain but still is using IV pain medication. He denies fevers, chills, nausea or vomiting. He denies passing any flatus. He is ambulating well. Physical Exam Constitutional: cooperative and comfortable; no acute distress and not ill appearing Respiratory: normal respiratory effort; no respiratory distress, no labored breathing and does not use accessory muscles Gastrointestinal (Abdomen): Inspection/Auscultation: abdomen not distended Percussion/Palpation: abdomen soft; no guarding and abdomen not rigid Mildly TTP lower abdomen Results & Data Vital Signs (Past 12 Hours) Vital Signs Temp Pulse Pulse Resp BP BP Pulse Ox 04/01/23 08:30 04/01/23 07:27 36.8 C 80 18 142/91 H 98 04/01/23 07:03 83 04/01/23 03:48 36.5 C 80 16 154/91 H 92 03/31/23 23:13 37.1 C 82 16 128/82 96 O2 Del Method 04/01/23 08:30 Room Air 04/01/23 07:27 Room Air 04/01/23 07:03 04/01/23 03:48 Nasal Cannula 03/31/23 23:13 Room Air PG Care Time/CCT Total # of Minutes Spent Total Time Spent with Patient: Total time spent is greater than 50% in coordination of care (as documented) at patient's floor/unit and/or counseling patient: Coding Level of Care Code 85557 SUB INP/OBS CARE 10/11MIN Diagnoses Acute diverticulitis K57.92
--- NOTE | 2023-04-01 17:12 | Hospitalist Progress Note ---
Date of Service April 01, 2023 Assessment & Plan (1) Sepsis: (2) Diverticulitis of colon with perforation: Plan: Patient is 32-year-old male with PMH HTN, GERD, tobacco use presented to ER with complaint of lower abdominal pain and anorexia that started yesterday. Acute diverticulitis with perforation --CT abd/pelvis:Acute diverticulitis of the mid sigmoid colon with wall thickening and pericolic fat stranding. Evidence of microperforation with small foci of gas in the adjacent sigmoid mesentery. No drainable abscess. -- Continue IV Zosyn, IV fluids, bowel rest --Blood culture: No growth to date Pain control Appreciate surgery input Leukocytosis trending down Continue conservative management Likely plan to start on clear liquid diet tomorrow if continues to improve (3) Hyponatremia: Plan: Sodium 132 today Likely due to poor oral intake Normal TSH Monitor sodium levels (4) HTN (hypertension): Plan: Continue lisinopril Monitor BP Hypophosphatemia Replete electrolytes as needed (5) GERD (gastroesophageal reflux disease): Plan: Continue PPI (6) Tobacco use: Plan: Denies nicotine patch Smoking cessation encouraged (7) Elevated bilirubin: Plan: Monitor LFTs (8) Alcohol use: Plan: 6-10 drinks five times a week. Monitor for withdrawal Continue thiamine, folic acid, gabapentin per protocol ETOH cessation encouraged DVT Prophylaxis SCDs for now Admission and Anticipated Discharge Date Admission Date: March 30, 2023 Subjective Patient is seen and examined at bedside States feeling better Abdominal pain continues to improve Denies any nausea, vomiting, chest pain, dyspnea, dizziness No new complaints Review of Systems Review of Systems: All systems reviewed & are unremarkable except as noted in Subjective Physical Exam Physical Exam: Physical Exam: Vitals signs as noted above General Appearance:Obese, no apparent distress Head: normocephalic, Atraumatic Eyes: normal inspection, EOMI Neck: supple, Trachea midline Respiratory/Chest: Normal breath sounds, CTA, No accessory muscle use Cardiovascular: S1, S2, No murmur Abdomen/GI:Soft, Mild lower abd tender, Bowel sounds present Extremities/Musculoskeletal:normal inspection, no edema Neurologic/Psych:AAOX3, grossly no focal neurological deficits Skin: normal color, warm Results & Data Results & Data Vital Signs (Past 12 Hours) Vital Signs Temp Pulse Pulse Resp BP Pulse Ox O2 Del Method 04/01/23 14:08 84 04/01/23 14:46 36.8 C 76 16 132/87 96 Room Air 04/01/23 11:27 36.9 C 82 16 141/87 H 97 Room Air 04/01/23 08:30 Room Air 04/01/23 07:27 36.8 C 80 18 142/91 H 98 Room Air 04/01/23 07:03 83 Laboratory Results Short CBC 04/01/23 Range/Units 07:45 WBC 11.52 H (4.8-10.8) K/ul Hgb 13.8 L (14.0-18.0) g/dl Hct 38.4 L (42.0-52.0) % Plt Count 168 (130-400) K/uL BMP 04/01/23 07:45 Sodium 132 L Potassium 3.6 Chloride 98 Carbon Dioxide 27 BUN 4 L Creatinine 0.65 Glucose 97 Calcium 8.9
[2023-04-02] MEDS: HYDROmorphone INJ 1 MG/ML SYRINGE IV PRN ×2 (00:20→03:51)
[2023-04-02] MEDS: GABAPENTIN 600 MG TAB PO SCH ×2 (01:02→12:04)
[2023-04-02] MEDS: PIPERACILLIN/TAZOBACTAM 4.5 GM in DEXTROSE 5% 100 ML IV SCH ×3 (01:02→17:42)
[2023-04-02] MEDS: D5W AND 1/2NSS 1,000 ML IV SCH ×4 (01:03→16:03)
[2023-04-02 07:01] LABS: Hematocrit (blood only) 40.4 % (42.0-52.0); Hemoglobin 14.6 g/dl (14.0-18.0); Mean Corpuscular Hgb Conc 36.1 g/dL (32.0-36.0); Mean Corpuscular Volume 96.9 fL (80.0-100.0); Mean Platelet Volume 10.8 fL (9.4-12.4); Platelet Count 224 K/uL (130-400); RDW Coefficient of Variation 12.6 % (11.5-14.5); RDW Standard Deviation 44.8 fL (36.4-46.3); Red Blood Count 4.17 M/uL (4.70-6.10); White Blood Count 10.13 K/ul (4.8-10.8)
[2023-04-02 07:21] LABS: Calcium 9.4 mg/dl (8.6-10.3); Creatinine Clr Calc Pharmacy 196.3 ml/min; Est GFR (African American) 149.4 ml/min; Est GFR (Non-African American) 128.9 ml/min; Potassium 3.8 mmol/L (3.5-5.1)
[2023-04-02] MEDS: MULTIVITAMIN TAB PO SCH (08:08)
[2023-04-02] MEDS: PANTOprazole 40 MG TAB PO SCH (08:08)
[2023-04-02] MEDS: lisinopril 20 MG TAB PO SCH (08:08)
[2023-04-02] MEDS: THIAMINE HCL 100 MG TAB PO SCH (08:08)
[2023-04-02] MEDS: FOLIC ACID 1 MG TAB PO SCH (08:08)
[2023-04-02] MEDS ORDERED: HYDROmorphone INJ 1 MG/ML SYRINGE IV PRN (08:12)
[2023-04-02] MEDS: oxyCODONE/ACETAMINOPHEN 5mg/325mg TAB PO PRN ×3 (08:43→20:08)
--- NOTE | 2023-04-02 11:45 | Surgery Progress Note ---
Date of Service April 02, 2023 Assessment & Plan (1) Diverticulitis of colon with perforation: Plan: Patient here with diverticulitis with microperforation WBC 10. Vitals stable and patient afebrile Abdominal discomfort improving. He is having + bowel function Will trial clears starting around dinnertime Continue IV abx while in house OOB as tolerates May have DVT prophylaxis from our standpoint Will follow. pt seen/examined with Dr. Arechiga Admission and Anticipated Discharge Date Admission Date: March 30, 2023 Supervising Physician Co-Signing Physician Notes I have seen and examined this patient with the surgical PA, I agree with this plan Subjective Patient reports his pain is getting better. Last had some IV pain meds around 3- 4am. Currently rates it a 2/10. He has no nausea/vomiting. He reports + gas and BMs. Physical Exam Physical Exam: awake/alert, no distress Gastrointestinal (Abdomen): Inspection/Auscultation: normal bowel sounds; abdomen not distended Percussion/Palpation: + abdomen tender (mild lower abdominal discomfort) and abdomen soft Results & Data Vital Signs (Past 12 Hours) Vital Signs Temp Pulse Resp BP Pulse Ox O2 Del Method 04/02/23 11:09 36.8 C 75 17 143/91 H 97 Room Air 04/02/23 07:17 36.8 C 60 18 138/78 95 Room Air 04/02/23 03:44 36.8 C 77 16 135/89 97 Room Air PG Care Time/CCT Total # of Minutes Spent Total Time Spent with Patient: Total time spent is greater than 50% in coordination of care (as documented) at patient's floor/unit and/or counseling patient: Coding Level of Care Code 66458 SUB INP/OBS CARE 10/11MIN Diagnoses Diverticulitis of colon with perforation K57.20
[2023-04-02] MEDS ORDERED: ENALAPRILAT 0.625 MG in SYRINGE 9.5 ML IV PRN (15:40)
--- NOTE | 2023-04-02 15:44 | Hospitalist Progress Note ---
Date of Service April 02, 2023 Assessment & Plan (1) Sepsis: (2) Diverticulitis of colon with perforation: Plan: Patient is 32-year-old male with PMH HTN, GERD, tobacco use presented to ER with complaint of lower abdominal pain and anorexia that started yesterday. Acute diverticulitis with perforation --CT abd/pelvis:Acute diverticulitis of the mid sigmoid colon with wall thickening and pericolic fat stranding. Evidence of microperforation with small foci of gas in the adjacent sigmoid mesentery. No drainable abscess. -- Continue IV Zosyn, IV fluids, bowel rest --Blood culture: No growth to date Pain control Appreciate surgery input Continue conservative management Trial of clear liquid diet today (3) Hyponatremia: Plan: Sodium 135 today Likely due to poor oral intake Normal TSH Monitor sodium levels (4) HTN (hypertension): Plan: Hypertensive urgency Continue lisinopril Vasotec as needed Monitor BP Hypophosphatemia Replete electrolytes as needed (5) GERD (gastroesophageal reflux disease): Plan: Continue PPI (6) Tobacco use: Plan: Denies nicotine patch Smoking cessation encouraged (7) Elevated bilirubin: Plan: Monitor LFTs (8) Alcohol use: Plan: 6-10 drinks five times a week. Monitor for withdrawal Continue thiamine, folic acid, gabapentin per protocol ETOH cessation encouraged DVT Prophylaxis SCDs Lovenox SQ Admission and Anticipated Discharge Date Admission Date: March 30, 2023 Subjective Patient is seen and examined at bedside Abdominal pain continues to improve No new complaints + BM Denies any nausea, vomiting, chest pain, dyspnea, dizziness Plan to be started on liquid diet tonight Review of Systems Review of Systems: All systems reviewed & are unremarkable except as noted in Subjective Physical Exam Physical Exam: Physical Exam: Vitals signs as noted above General Appearance:Obese, no apparent distress Head: normocephalic, Atraumatic Eyes: normal inspection, EOMI Neck: supple, Trachea midline Respiratory/Chest: Normal breath sounds, CTA, No accessory muscle use Cardiovascular: S1, S2, No murmur Abdomen/GI:Soft, Mild lower abd tender, Bowel sounds present Extremities/Musculoskeletal:normal inspection, no edema Neurologic/Psych:AAOX3, grossly no focal neurological deficits Skin: normal color, warm Results & Data Results & Data Vital Signs (Past 12 Hours) Vital Signs Temp Pulse Pulse Resp BP Pulse Ox O2 Del Method 04/02/23 14:50 36.5 C 77 18 155/102 H 98 Room Air 04/02/23 13:26 71 04/02/23 11:09 36.8 C 75 17 143/91 H 97 Room Air 04/02/23 07:17 36.8 C 60 18 138/78 95 Room Air 04/02/23 03:44 36.8 C 77 16 135/89 97 Room Air Laboratory Results Short CBC 04/02/23 Range/Units 05:41 WBC 10.13 (4.8-10.8) K/ul Hgb 14.6 (14.0-18.0) g/dl Hct 40.4 L (42.0-52.0) % Plt Count 224 (130-400) K/uL BMP 04/02/23 05:41 Sodium 135 L Potassium 3.8 Chloride 99 Carbon Dioxide 29 BUN 4 L Creatinine 0.67 Glucose 86 Calcium 9.4
[2023-04-03] MEDS: oxyCODONE/ACETAMINOPHEN 5mg/325mg TAB PO PRN ×5 (00:08→19:31)
[2023-04-03] MEDS: PIPERACILLIN/TAZOBACTAM 4.5 GM in DEXTROSE 5% 100 ML IV SCH ×3 (01:37→17:26)
[2023-04-03] MEDS: D5W AND 1/2NSS 1,000 ML IV SCH (04:20)
[2023-04-03 07:42] LABS: Hematocrit (blood only) 43.3 % (42.0-52.0); Hemoglobin 15.5 g/dl (14.0-18.0); Mean Corpuscular Hemoglobin 35.1 pg (25.0-34.0); Mean Corpuscular Hgb Conc 35.8 g/dL (32.0-36.0); Mean Corpuscular Volume 98.2 fL (80.0-100.0); Mean Platelet Volume 10.4 fL (9.4-12.4); Platelet Count 244 K/uL (130-400); RDW Coefficient of Variation 12.4 % (11.5-14.5); RDW Standard Deviation 45.1 fL (36.4-46.3); Red Blood Count 4.41 M/uL (4.70-6.10); White Blood Count 13.54 K/ul (4.8-10.8)
[2023-04-03 08:08] LABS: BUN Creatinine Ratio 5.3 (10-20); Calcium 9.6 mg/dl (8.6-10.3); Creatinine Clr Calc Pharmacy 174.9 ml/min; Est GFR (African American) 142.7 ml/min; Est GFR (Non-African American) 123.1 ml/min; Potassium 3.6 mmol/L (3.5-5.1)
[2023-04-03] MEDS: lisinopril 20 MG TAB PO SCH (09:18)
[2023-04-03] MEDS: FOLIC ACID 1 MG TAB PO SCH (09:18)
[2023-04-03] MEDS: MULTIVITAMIN TAB PO SCH (09:19)
[2023-04-03] MEDS: PANTOprazole 40 MG TAB PO SCH (09:19)
[2023-04-03] MEDS: THIAMINE HCL 100 MG TAB PO SCH (09:19)
[2023-04-03] MEDS: ENOXAPARIN INJ 40 MG/0.4 ML SYR SQ SCH (09:19)
[2023-04-03] MEDS: NSS + 20MEQ KCL 20 MEQ/1,000 ML BAG IV SCH (10:05)
--- NOTE | 2023-04-03 10:09 | Surgery Progress Note ---
I saw this patient in the am and agreed with this plan Date of Service April 03, 2023 Assessment & Plan (1) Acute diverticulitis: Plan: Patient here with diverticulitis with microperforation WBC went up today to 13. Otherwise vitals are stable and patient is afebrile Abdominal discomfort remains the same as yesterday. he is still taking percocet every 4 hours or so He was trialed on clears yesterday evening, however due to increase in WBC and pain med requirements will back him down to NPO with ice Continue IV abx OOB as tolerates Will continue to follow along closley Admission and Anticipated Discharge Date Admission Date: March 30, 2023 Subjective Patient states he is feeling about the same. Reports lower abdominal pain that is more annoying than anything where he takes some percocet every 4 hours. When he gets the pain meds he feels well. He had some soup broth, jello, and tristanian ice both yesterday evening and this AM without worsening symptoms. No fevers. Still reports + flatus/BM Physical Exam Physical Exam: awake/alert, no distress Respiratory: normal respiratory effort Gastrointestinal (Abdomen): Percussion/Palpation: + abdomen tender (some discomfort in lower abdomen, worse on L side ) and abdomen soft Results & Data Vital Signs (Past 12 Hours) Vital Signs Temp Pulse Pulse Resp BP Pulse Ox O2 Del Method 04/03/23 07:30 36.9 C 76 16 144/93 H 97 Room Air 04/03/23 07:13 61 04/03/23 03:51 36.9 C 71 16 130/88 96 Room Air 04/02/23 22:45 84 04/02/23 23:09 36.8 C 81 18 150/93 H 96 Room Air 04/02/23 22:39 Room Air PG Care Time/CCT Total # of Minutes Spent Total Time Spent with Patient: Total time spent is greater than 50% in coordination of care (as documented) at patient's floor/unit and/or counseling patient: Coding Level of Care Code 69035 SUB INP/OBS CARE 25MIN Diagnoses Acute diverticulitis K57.92
[2023-04-03] MEDS ORDERED: GABAPENTIN 600 MG TAB PO SCH (12:00)
[2023-04-03] MEDS: hydrOXYzine HCl 10 MG TAB PO PRN (13:28)
--- NOTE | 2023-04-03 16:30 | Hospitalist Progress Note ---
Date of Service April 03, 2023 Assessment & Plan (1) Sepsis: (2) Diverticulitis of colon with perforation: Plan: Patient is 32-year-old male with PMH HTN, GERD, tobacco use presented to ER with complaint of lower abdominal pain and anorexia that started yesterday. Acute diverticulitis with perforation --CT abd/pelvis:Acute diverticulitis of the mid sigmoid colon with wall thickening and pericolic fat stranding. Evidence of microperforation with small foci of gas in the adjacent sigmoid mesentery. No drainable abscess. -- Continue IV Zosyn, IV fluids, bowel rest --Blood culture: No growth to date Pain control Appreciate surgery input Continue conservative management NPO for now per surgery (3) Hyponatremia: Plan: Sodium 136 today Likely due to poor oral intake Normal TSH Monitor sodium levels (4) HTN (hypertension): Plan: Hypertensive urgency Continue lisinopril Vasotec as needed Monitor BP Hypophosphatemia Replete electrolytes as needed (5) GERD (gastroesophageal reflux disease): Plan: Continue PPI (6) Tobacco use: Plan: Denies nicotine patch Smoking cessation encouraged (7) Elevated bilirubin: Plan: Monitor LFTs (8) Alcohol use: Plan: 6-10 drinks five times a week. Monitor for withdrawal Continue thiamine, folic acid, gabapentin per protocol ETOH cessation encouraged DVT Prophylaxis SCDs Lovenox SQ Admission and Anticipated Discharge Date Admission Date: March 30, 2023 Subjective Patient is seen and examined at bedside Abdominal pain is controlled Denies any nausea, vomiting, chest pain, dyspnea, dizziness Mild rise in leukocytosis Anxious today per chummer of Systems Review of Systems: All systems reviewed & are unremarkable except as noted in Subjective Physical Exam Physical Exam: Physical Exam: Vitals signs as noted above General Appearance:Obese, no apparent distress Head: normocephalic, Atraumatic Eyes: normal inspection, EOMI Neck: supple, Trachea midline Respiratory/Chest: Normal breath sounds, CTA, No accessory muscle use Cardiovascular: S1, S2, No murmur Abdomen/GI:Soft, Mild lower abd tender, Bowel sounds present Extremities/Musculoskeletal:normal inspection, no edema Neurologic/Psych:AAOX3, grossly no focal neurological deficits Skin: normal color, warm Results & Data Results & Data Vital Signs (Past 12 Hours) Vital Signs Temp Pulse Pulse Resp BP Pulse Ox O2 Del Method 04/03/23 14:55 36.7 C 66 18 134/88 99 Room Air 04/03/23 11:22 36.8 C 72 16 131/83 96 Room Air 04/03/23 07:30 36.9 C 76 16 144/93 H 97 Room Air 04/03/23 07:13 61 Laboratory Results Short CBC 04/03/23 Range/Units 07:07 WBC 13.54 H (4.8-10.8) K/ul Hgb 15.5 (14.0-18.0) g/dl Hct 43.3 (42.0-52.0) % Plt Count 244 (130-400) K/uL BMP 04/03/23 07:07 Sodium 136 Potassium 3.6 Chloride 101 Carbon Dioxide 26 BUN 4 L Creatinine 0.75 Glucose 77 Calcium 9.6
[2023-04-04] MEDS: NSS + 20MEQ KCL 20 MEQ/1,000 ML BAG IV SCH ×2 (01:24→18:05)
[2023-04-04] MEDS: PIPERACILLIN/TAZOBACTAM 4.5 GM in DEXTROSE 5% 100 ML IV SCH ×3 (01:25→18:05)
[2023-04-04] MEDS: oxyCODONE/ACETAMINOPHEN 5mg/325mg TAB PO PRN ×2 (01:49→09:41)
[2023-04-04 07:50] LABS: Hematocrit (blood only) 41.3 % (42.0-52.0); Hemoglobin 14.6 g/dl (14.0-18.0); Mean Corpuscular Hemoglobin 34.8 pg (25.0-34.0); Mean Corpuscular Hgb Conc 35.4 g/dL (32.0-36.0); Mean Corpuscular Volume 98.3 fL (80.0-100.0); Mean Platelet Volume 10.3 fL (9.4-12.4); Platelet Count 257 K/uL (130-400); RDW Coefficient of Variation 12.3 % (11.5-14.5); RDW Standard Deviation 44.4 fL (36.4-46.3); White Blood Count 12.65 K/ul (4.8-10.8)
[2023-04-04 08:18] LABS: BUN Creatinine Ratio 5.6 (10-20); Calcium 9.4 mg/dl (8.6-10.3); Creatinine Clr Calc Pharmacy 184.6 ml/min; Est GFR (African American) 145.9 ml/min; Est GFR (Non-African American) 125.9 ml/min; Potassium 3.8 mmol/L (3.5-5.1)
--- NOTE | 2023-04-04 09:34 | Surgery Progress Note ---
Date of Service April 04, 2023 Assessment & Plan (1) Acute diverticulitis: Plan: Patient here with diverticulitis with microperforation WBC 12 (13). Otherwise vitals are stable and patient is afebrile Abdominal discomfort remains the same as yesterday. he is still taking percocet every 4 hours or so Continue NPO with IVF, IV abx, would not adv diet today given ongoing symptoms May consider repeat CT scan in future if continues without much improvement OOB as tolerates Will continue to follow along closely Admission and Anticipated Discharge Date Admission Date: March 30, 2023 Supervising Physician Co-Signing Physician Notes I saw and examined this patient this am. I agree with the plan, we will obtain a CT of he abdomen and pelvis. Subjective Patient reports he still feels the same, not much improvement. Still taking in narcotics for pain. No n/v. He is passing flatus/loose stools. Physical Exam Physical Exam: awake/alert Respiratory: normal respiratory effort Gastrointestinal (Abdomen): Percussion/Palpation: + abdomen tender (discomfort to palpation in the lower abdomen, worse on the L side) and abdomen soft; no guarding Results & Data Vital Signs (Past 12 Hours) Vital Signs Temp Pulse Pulse Resp BP Pulse Ox O2 Del Method 04/04/23 07:31 36.9 C 71 18 144/87 H 97 Room Air 04/04/23 03:35 36.7 C 73 16 125/78 97 Room Air 04/03/23 22:00 78 04/03/23 23:09 36.5 C 66 18 133/87 96 Room Air PG Care Time/CCT Total # of Minutes Spent Total Time Spent with Patient: Total time spent is greater than 50% in coordination of care (as documented) at patient's floor/unit and/or counseling patient: Coding Level of Care Code 64576 SUB INP/OBS CARE 10/11MIN Diagnoses Acute diverticulitis K57.92
[2023-04-04] MEDS: ENOXAPARIN INJ 40 MG/0.4 ML SYR SQ SCH (09:38)
[2023-04-04] MEDS: FOLIC ACID 1 MG TAB PO SCH (09:42)
[2023-04-04] MEDS: THIAMINE HCL 100 MG TAB PO SCH (09:42)
[2023-04-04] MEDS: lisinopril 20 MG TAB PO SCH (09:42)
[2023-04-04] MEDS: PANTOprazole 40 MG TAB PO SCH (09:42)
[2023-04-04] MEDS: MULTIVITAMIN TAB PO SCH (09:42)
[2023-04-04] MEDS: hydrOXYzine HCl 10 MG TAB PO PRN (11:10)
[2023-04-04] MEDS ORDERED: OPTIRAY 320 100ml IV ONE (12:42)
--- NOTE | 2023-04-04 13:12 | CT Scan Report ---
CT OF THE ABDOMEN AND PELVIS WITH CONTRAST CLINICAL HISTORY: Abdominal pain. COMPARISON STUDY: CT of the abdomen and pelvis March 30, 2023 TECHNIQUE: Following IV administration of 94 mL of Optiray, axial images of the abdomen and pelvis we re obtained from the lung bases to the proximal femurs. Images were reviewed in the axial, sagittal, and coronal planes. IV contrast was administered without complication. Automated exposure control wa s utilized for the study. A dose lowering technique was utilized adhering to the principles of ALARA . CT DOSE: 1531.10 mGy.cm FINDINGS: There are trace bilateral pleural effusions. The liver, adrenal glands, kidneys and pancrea s are normal. There is no biliary or pancreatic ductal dilatation. No peripancreatic or pericholecyst ic infiltration is present. Mild splenomegaly is noted. There is no evidence for a bowel obstruction. Colonic diverticulosis is noted. Note is again made of moderate wall thickening the mid sigmoid colo n with extensive adjacent inflammation. Inflammation has increased in extent since CT of March 30 3. Multiple locules of extraluminal gas are again noted. The amount of extraluminal gas has slightly increased. This is consistent with a contained perforation. The perforated diverticulum is again note d. A few tiny adjacent pockets of fluid has increased. No well-defined rim-enhancing fluid collection is noted. A small amount of fluid within the pelvis is noted. There are no additional sites of bowel wall thickening. The appendix is normal. Major vasculature is patent. IMPRESSION: Mild progression of findings consistent with perforated sigmoid diverticulitis since CT of March 30, 2023. Increase in inflammation and slight increase in extraluminal gas and small pockets of fluid without drainable abscess at this time. ACT 112: Negative or not required by law. Electronically signed by: Coleman Peters M.D. 04/04/2023 1:11 PM
[2023-04-04] MEDS: oxyCODONE/ACETAMINOPHEN 10-325 TAB PO PRN ×2 (14:07→20:31)
[2023-04-04] MEDS ORDERED: hydrALAZINE HCL 20 MG/ML VIAL IV PRN (15:35)
--- NOTE | 2023-04-04 15:37 | Hospitalist Progress Note ---
Date of Service April 04, 2023 Assessment & Plan (1) Sepsis: (2) Diverticulitis of colon with perforation: Plan: Patient is 32-year-old male with PMH HTN, GERD, tobacco use presented to ER with complaint of lower abdominal pain and anorexia that started yesterday. Acute diverticulitis with perforation --CT abd/pelvis:Acute diverticulitis of the mid sigmoid colon with wall thickening and pericolic fat stranding. Evidence of microperforation with small foci of gas in the adjacent sigmoid mesentery. No drainable abscess. -- Continue IV Zosyn, IV fluids, bowel rest --Blood culture: No growth to date Pain control Appreciate surgery input Continue conservative management CT abd today showed mild progression of perforated sigmoid diverticulitis but no drainable abscess N.p.o. for now (3) Hyponatremia: Plan: Sodium 135 today Likely due to poor oral intake/Alcohol use Normal TSH Monitor sodium levels (4) HTN (hypertension): Plan: Hypertensive urgency Increase lisinopril to 40mg daily IV Hydralazine as needed Monitor BP Hypophosphatemia Replete electrolytes as needed (5) GERD (gastroesophageal reflux disease): Plan: Continue PPI (6) Tobacco use: Plan: Denies nicotine patch Smoking cessation encouraged (7) Elevated bilirubin: Plan: Monitor LFTs (8) Alcohol use: Plan: 6-10 drinks five times a week. Monitor for withdrawal Continue thiamine, folic acid, gabapentin per protocol ETOH cessation encouraged DVT Prophylaxis SCDs Lovenox SQ Admission and Anticipated Discharge Date Admission Date: March 30, 2023 Subjective Patient is seen and examined at bedside Abdominal pain is about the same as yesterday No new complaints Denies any nausea, vomiting, chest pain, dyspnea, dizziness CT abd today showed mild progression of perforated sigmoid diverticulitis but no drainable abscess Review of Systems Review of Systems: All systems reviewed & are unremarkable except as noted in Subjective Physical Exam Physical Exam: Physical Exam: Vitals signs as noted above General Appearance:Obese, no apparent distress Head: normocephalic, Atraumatic Eyes: normal inspection, EOMI Neck: supple, Trachea midline Respiratory/Chest: Normal breath sounds, CTA, No accessory muscle use Cardiovascular: S1, S2, No murmur Abdomen/GI:Soft, non tender, Bowel sounds present Extremities/Musculoskeletal:normal inspection, no edema Neurologic/Psych:AAOX3, grossly no focal neurological deficits Skin: normal color, warm Results & Data Results & Data Vital Signs (Past 12 Hours) Vital Signs Temp Pulse Resp BP BP Pulse Ox O2 Del Method 04/04/23 13:00 04/04/23 11:10 36.4 C L 83 18 162/103 H 162/101 H 97 Room Air 04/04/23 07:31 36.9 C 71 18 144/87 H 97 Room Air 04/04/23 03:35 36.7 C 73 16 125/78 97 Room Air O2 Del Method 04/04/23 13:00 Room Air 04/04/23 11:10 04/04/23 07:31 04/04/23 03:35 Laboratory Results Short CBC 04/04/23 Range/Units 07:08 WBC 12.65 H (4.8-10.8) K/ul Hgb 14.6 (14.0-18.0) g/dl Hct 41.3 L (42.0-52.0) % Plt Count 257 (130-400) K/uL BMP 04/04/23 07:08 Sodium 135 L Potassium 3.8 Chloride 101 Carbon Dioxide 27 BUN 4 L Creatinine 0.71 Glucose 80 Calcium 9.4
[2023-04-05] MEDS: PIPERACILLIN/TAZOBACTAM 4.5 GM in DEXTROSE 5% 100 ML IV SCH ×3 (01:09→18:34)
[2023-04-05] MEDS: oxyCODONE/ACETAMINOPHEN 10-325 TAB PO PRN (03:37)
[2023-04-05 06:19] LABS: Hematocrit (blood only) 42.9 % (42.0-52.0); Mean Corpuscular Hemoglobin 34.5 pg (25.0-34.0); Mean Corpuscular Volume 98.6 fL (80.0-100.0); Mean Platelet Volume 10.2 fL (9.4-12.4); Platelet Count 274 K/uL (130-400); RDW Coefficient of Variation 12.3 % (11.5-14.5); Red Blood Count 4.35 M/uL (4.70-6.10); White Blood Count 13.15 K/ul (4.8-10.8)
[2023-04-05 06:50] LABS: BUN Creatinine Ratio 5.3 (10-20); Calcium 9.5 mg/dl (8.6-10.3); Creatinine Clr Calc Pharmacy 172.4 ml/min; Est GFR (African American) 142.7 ml/min; Est GFR (Non-African American) 123.1 ml/min; Potassium 4.3 mmol/L (3.5-5.1)
[2023-04-05] MEDS: PANTOprazole 40 MG TAB PO SCH (08:46)
[2023-04-05] MEDS: MULTIVITAMIN TAB PO SCH (08:46)
[2023-04-05] MEDS: FOLIC ACID 1 MG TAB PO SCH (08:46)
[2023-04-05] MEDS: lisinopril 40 MG TAB PO SCH (08:46)
[2023-04-05] MEDS: THIAMINE HCL 100 MG TAB PO SCH (08:47)
[2023-04-05] MEDS ORDERED: PROPOFOL IV EMULSION 10 MG/ML 20 ML VIAL IV ONE (09:38)
[2023-04-05] MEDS ORDERED: MIDAZOLAM HCL 1 MG/ML 2ML VIAL ONE (09:38)
[2023-04-05] MEDS ORDERED: LIDOCAINE 2% 2 ML VIAL/AMP(20MG/ML) INFIL ONE (09:38)
[2023-04-05] MEDS ORDERED: fentaNYL citrate PF 100 MCG/2 ML VIAL ONE ×3 (09:38→12:39)
[2023-04-05] MEDS ORDERED: ONDANSETRON INJ 2 MG/ML 2 ML VIAL ONE (09:38)
[2023-04-05] MEDS ORDERED: DEXAMETHASONE SOD INJ 4 MG/ML VIAL ONE (09:38)
[2023-04-05] MEDS: NSS + 20MEQ KCL 20 MEQ/1,000 ML BAG IV SCH (09:47)
--- NOTE | 2023-04-05 09:52 | Surgery Progress Note ---
Date of Service April 05, 2023 Assessment & Plan (1) Acute diverticulitis: Plan: The decision is made to take the patient to the operating room today for exploratory laparoscopy and anticipated abdominal washout with drain insertion. I explained to Juan José that should there be a compromise of the colon wall that is still present then he will require colon resection with possible colostomy. The details of the procedure have been explained to the patient including all of the risks and benefits. All of his questions were answered. Consent was obtained. Admission and Anticipated Discharge Date Admission Date: March 30, 2023 Subjective Patient is seen and examined today at the bedside. He says he does not feel like he is progressing and continues to have suprapubic discomfort. He feels as though the pain along his left side has showed drastic improvement. He denies chest pain and shortness of breath. Leukocytosis had returned on 04/03/23. CT of the abdomen and pelvis were repeated yesterday showing progression of inflammation with a small amount of fluid in the pelvis. Physical Exam Constitutional: cooperative; no acute distress, not ill appearing and no altered mental status Respiratory: normal respiratory effort; no respiratory distress, no labored breathing and does not use accessory muscles Gastrointestinal (Abdomen): Abdomen is soft with tenderness to palpation at the suprapubic area. Minimal tenderness along the left lower quadrant. Results & Data Vital Signs (Past 12 Hours) Vital Signs Temp Pulse Pulse Resp BP BP Pulse Ox 04/05/23 07:43 36.7 C 94 H 18 142/89 H 92 04/05/23 04:00 36.6 C 77 18 137/85 96 04/04/23 22:43 75 04/04/23 23:23 36.5 C 76 18 130/88 96 O2 Del Method 04/05/23 07:43 Room Air 04/05/23 04:00 Room Air 04/04/23 22:43 04/04/23 23:23 Room Air Laboratory Results WBC: 13.[phone] Scan Report Patient:JUAN JOSÉ MARTÍNEZ Admit Date:03/30/23 MR#:[id number] Address1:[address] [facility] Acct ID:[id number] Address2:[address] Date:1990 [facility] Zip:[place] [id number] Age:32 Location:2N Sex:M Room/Bed:[facility] Att Phy:Aleoj Celestin MD Diagnosis:SEPSIS, ACUTE DIVERTICULITIS Miranda Phy:Jace To PA-C Service Date:04/04/23 Fam Phy: Interpreting Phy:Coleman Peters MDAdmit Phy:Krystyna Porras DO Ordering Phy:Anabel Pierson cc: ~ CT OF THE ABDOMEN AND PELVIS WITH CONTRAST CLINICAL HISTORY: Abdominal pain. COMPARISON STUDY: CT of the abdomen and pelvis March 30, 2023 TECHNIQUE: Following IV administration of 94 mL of Optiray, axial images of the abdomen and pelvis were obtained from the lung bases to the proximal femurs. Images were reviewed in the axial, sagittal, and coronal planes. IV contrast was administered without complication. Automated exposure control was utilized for the study. A dose lowering technique was utilized adhering to the principles of ALARA. CT DOSE: 1531.10 mGy.cm FINDINGS: There are trace bilateral pleural effusions. The liver, adrenal glands, kidneys and pancreas are normal. There is no biliary or pancreatic ductal dilatation. No peripancreatic or pericholecystic infiltration is present. Mild splenomegaly is noted. There is no evidence for a bowel obstruction. Loyall karen diverticulosis is noted. Note is again made of moderate wall thickening the mid sigmoid colon with extensive adjacent inflammation. Inflammation has increased in extent since CT of March 30, 2023. Multiple locules of extraluminal gas are again noted. The amount of extraluminal gas has slightly increased. This is consistent with a contained perforation. The perforated diverticulum is again noted. A few tiny adjacent pockets of fluid has increased. No well-defined rim- enhancing fluid collection is noted. A small amount of fluid within the pelvis is noted. There are no additional sites of bowel wall thickening. The appendix is normal. Major vasculature is patent. IMPRESSION: Mild progression of findings consistent with perforated sigmoid diverticulitis since CT of March 30, 2023. Increase in inflammation and slight increase in extraluminal gas and small pockets of fluid without drainable abscess at this time. PG Care Time/CCT Total # of Minutes Spent Total Time Spent with Patient: Total time spent is greater than 50% in coordination of care (as documented) at patient's floor/unit and/or counseling patient: Coding Level of Care Code 26215 SUB INP/OBS CARE 10/11MIN Diagnoses Acute diverticulitis K57.92
[2023-04-05] MEDS ORDERED: BUPIVACAINE/EPINEPHRINE 0.5% MPF 1:200,000 30 ML VIAL ONE (10:19)
[2023-04-05] MEDS ORDERED: ATROPINE SULFATE 0.1 MG/ML 10ML SYR IV PRN (10:37)
[2023-04-05] MEDS ORDERED: PROMETHAZINE HCL 6.25 MG in SODIUM CHLORIDE 0.9% 50 ML IV PRN (10:37)
[2023-04-05] MEDS ORDERED: ONDANSETRON INJ 2 MG/ML 2 ML VIAL IV PRN (10:37)
[2023-04-05] MEDS ORDERED: LABETALOL HCL IV 5 MG/ML 20ML IV PRN (10:37)
--- NOTE | 2023-04-05 10:37 | Anesthesiology Consultation ---
Date of Service April 05, 2023 Assessment & Plan (1) Encounter for pre-operative examination: Chart Review Chart Review: Acceptable Risk for Surgery (urgent) History Surgery Operation Date: 04/05/23 15:10 Proposed Procedures p Exploratory Laparoscopic, Possible Laparotomy, Possible Colon Resection - Sienna Arechiga DO Height/Weight Height: 5 ft 10 in Weight: 102.1 kg Allergies Allergy/AdvReac Type Severity Reaction Status Date / Time No Known Allergies Allergy Verified 03/30/23 17:21 Medications Home Medications Medication Instructions Recorded Confirmed Last Taken lisinopril 20 mg tablet 20 mg PO QAM 03/30/23 03/30/23 03/29/23 omeprazole 20 mg tablet,delayed 20 mg PO DAILY 03/30/23 03/30/23 03/29/23 release Active Medications Generic Name Dose Route Start Last Admin Trade Name Freq PRN Reason Stop Dose Admin Enoxaparin Sodium 40 mg 04/03/23 09:00 04/04/23 09:38 Enoxaparin Inj 40 Mg/0.4 Ml Syr SQ 05/03/23 08:59 40 mg QAM GOLDY Administration Folic Acid 1 mg 03/31/23 09:00 04/05/23 08:46 Folic Acid 1 Mg Tab PO 04/30/23 08:59 Not Given QAM GOLDY Hydroxyzine HCl 10 mg 04/03/23 12:26 04/04/23 11:10 Hydroxyzine Hcl 10 Mg Tab PO 05/03/23 12:25 10 mg Q8H PRN Administration Anxiety Piperacillin Sod/Tazobactam 120 mls @ 30 mls/hr 03/31/23 02:00 04/05/23 09:47 Sod 4.5 gm/ Dextrose IV 04/10/23 01:59 30 mls/hr Q8H GOLDY Administration Protocol Potassium Chloride/Sodium Chloride 20 meq in 1,000 mls @ 60 mls/hr 04/03/23 09:30 04/05/23 09:47 Normal Saline W/20 Meq Kcl IV 05/03/23 09:29 60 mls/hr .[id number] GOLDY Administration Protocol Lisinopril 40 mg 04/05/23 09:00 04/05/23 08:46 Lisinopril 40 Mg Tab PO 05/05/23 08:59 Not Given QAM GOLDY Multivitamins 1 tab 04/01/23 09:00 04/05/23 08:46 Multivitamin Tab PO 05/01/23 08:59 Not Given QAM GOLDY Oxycodone/Acetaminophen 1 tab 04/04/23 11:30 04/05/23 03:37 Oxycodone/Acetaminophen 10-325 Tab PO 04/18/23 11:29 1 tab Q4H PRN Administration Pain Pantoprazole Sodium 40 mg 03/31/23 09:00 04/05/23 08:46 Pantoprazole 40 Mg Tab PO 04/30/23 08:59 Not Given DAILY GOLDY Thiamine HCl 100 mg 03/31/23 09:00 04/05/23 08:47 Thiamine Hcl 100 Mg Tab PO 04/30/23 08:59 Not Given QAM GOLDY NPO Date Last Intake of Fluids: 04/05/23 Time Last Intake of Fluids: 06:00 Last Intake of Fluids Comment: sips of water only Date Last Intake of Solids: 04/03/23 Last Intake of Solids Comment: jello and clear soup two days ago Past Medical History Medical History GERD (gastroesophageal reflux disease) HTN (hypertension) Tobacco use Past Family History Family History Other Alzheimer disease Dyslipidemia Past Surgical History Surgical History No pertinent past surgical history Past Anesthesia History No Hx of Anesthesia Complications History of PONV No Hx of PONV and No Hx of Motion Sickness Social History Smoking Status: Current every day smoker tobacco type: cigarettes Smoking cigarettes per day: 10 Hx Alcohol Use: Yes Alcohol type: beer alcohol intake frequency: a few times a week Hx Substance Use: No Physical Exam Vital Signs Last Vital Signs Temp 37.0 C 04/05/23 10:10 Pulse 96 H 04/05/23 10:10 Resp 20 04/05/23 10:10 BP 162/98 H 04/05/23 10:10 Pulse Ox 97 04/05/23 10:10 O2 Del Method Room Air 04/05/23 10:10 Testing Laboratory Results 04/05/23 05:38 04/05/23 05:38 PT 12.0 Seconds (9.0-12.0) 03/30/23 17:25 INR 1.1 (0.9-1.1) 03/30/23 17:25 APTT 31.1 Seconds (21.0-31.0) H 03/30/23 17:25 Hemoglobin A1c 4.9 % (4.5-5.6) 03/30/23 17:22 Urine Color Yellow 03/30/23 21:20 Urine Appearance Clear (Clear) 03/30/23 21:20 Urine pH 6.5 (4.5-7.5) 03/30/23 21:20 Ur Specific [place] > 1.045 (1.000-1.030) H 03/30/23 21:20 Urine Protein Negative (Negative) 03/30/23 21:20 Urine Glucose (UA) Negative (Negative) 03/30/23 21:20 Urine Ketones Trace (Negative) H 03/30/23 21:20 Urine Nitrite Negative (Negative) 03/30/23 21:20 Ur Leukocyte Esterase Negative (Negative) 03/30/23 21:20 03/30/23 19:51 Aerobic Blood Culture - Final Blood No growth in Aerobic bottle after 5 days. Anaerobic Blood Culture - Final No growth in Anaerobic bottle after 5 days. 03/30/23 19:51 Aerobic Blood Culture - Final Blood No growth in Aerobic bottle after 5 days. Anaerobic Blood Culture - Final No growth in Anaerobic bottle after 5 days.
[2023-04-05] MEDS ORDERED: ROCURONIUM BROMIDE 10 MG/ML 5 ML VIAL IV ONE (11:35)
[2023-04-05] MEDS ORDERED: SUGAMMADEX SODIUM 200 MG/2 ML VIAL IV ONE (12:11)
--- NOTE | 2023-04-05 12:45 | Operative Report ---
PG Post Operative Report Pre & Post Diagnosis Operation Date: 04/05/23 15:10 Pre-Op Diagnosis: SEPSIS, ACUTE DIVERTICULITIS Post-Op Diagnosis: SEPSIS, ACUTE DIVERTICULITIS I identified the patient and participated in the time-out.: Yes Procedure Operation Date: 04/05/23 15:10 Actual Procedures p Exploratory Laparoscopic, abdominal washout.(Not Applicable) - Sienna Arechiga DO Surgeon Sienna Arechiga DO Electronic Bench Technician DAVID Chua Estimated Blood Loss 5 Findings Consistent with Post-Op Diagnosis Small amount of green tinged serous fluid in the pelvis. Thickened area of the left colon with a focal area adhesed to the abdominal sidewall. Thin omentum covering the area not thickened. No purulent fluid, no fibrinous exudate. Specimens No tissue specimen Intra-abdominal fluid was sent for culture Drains 10 [place] drain Anesthesia Type General Complications None Indications Persistent leukocytosis without resolving abdominal discomfort. CT revealed small amount of fluid in the pelvis and contained pockets of air. Description of Procedure The patient was brought back to the operating room and placed on the operating room table in supine position. SCDs were applied to bilateral lower extremities. He was connected to cardiac and oxygen monitoring and general anesthesia was administered. A secure airway was established by anesthesia. A Savage catheter and OG tube were inserted. The abdomen was prepped and draped in typical sterile fashion and a time out was conducted. Local anesthetic was injected into the skin and subcutaneous tissues at the supraumbilical area and a small stab incision was made. A Veress needle was used to gain access to the intra-abdominal space confirmed with the saline drop test. CO2 insufflation was initiated and pneumoperitoneum was achieved to a goal pressure of 15 mmHg. 5 mm trocar was inserted at this location under direct visualization using a Visiport. 2 additional 5 mm trocars were inserted under direct visualization at the right upper and right lower quadrants. The omentum overlying the bowel appeared thin, soft there was no fibrinous material or intermediate encounter of any purulent fluid. Upon mobilizing the sigmoid colon a small amount of green- tinged serous fluid was identified at the pelvis. This was suctioned away and collected for culture and Gram stain. There was a small amount of oozing blood from a small omental tear. This was controlled with gentle cautery. The colon was noted to be adhesed to the left abdominal sidewall 1 focal area. This is the area that is suspicious for being the focus of diverticulitis and previous perforation. There is no active perforation noted at the time of this laparoscopy. There is no purulent fluid surrounding this area or fibrinous material. The abdomen was copiously irrigated until the fluid ran clear. The fluid that was irrigated into the abdomen was suctioned away all 4 quadrants. A 10 [place] drain was inserted into the pelvis and secured at the skin with a 2-0 silk suture. The laparoscopic incisions were injected with local anesthetic and closed with 4-0 Vicryl suture. The abdomen was cleaned with a saline soaked lap pad and dried. Dermabond was applied to the incisions. The [place] drain site was dressed with a drain sponge secured in place with tape. The patient tolerated the procedure well, he was extubated and transferred to recovery in stable condition. I attest to the content of the Intraoperative Record and any orders documented therein. Any exceptions are noted below.
[2023-04-05] MEDS ORDERED: LABETALOL HCL IV 5 MG/ML 20ML IV ONE (12:55)
[2023-04-05] MEDS ORDERED: KETOROLAC 30 MG/ML VIAL ONE (12:55)
[2023-04-05] MEDS: HYDROmorphone INJ 1 MG/ML SYRINGE IV PRN ×4 (13:24→13:40)
--- NOTE | 2023-04-05 13:45 | Anesthesiology Progress Note ---
Date of Service April 05, 2023 Anesthesia Post Procedure Vital Signs Vital Signs: Temp Pulse Pulse Resp BP BP Pulse Ox 04/05/23 13:30 82 12 130/73 94 04/05/23 13:20 14 L 13 144/89 H 98 04/05/23 13:00 91 H 12 146/97 H 100 04/05/23 13:10 95 H 13 151/88 H 96 04/05/23 12:50 36.2 C L 92 H 16 160/96 H 99 04/05/23 08:30 66 04/05/23 10:10 37.0 C 96 H 20 162/98 H 97 04/05/23 07:43 36.7 C 94 H 18 142/89 H 92 04/05/23 04:00 36.6 C 77 18 137/85 96 04/04/23 22:43 75 04/04/23 23:23 36.5 C 76 18 130/88 96 04/04/23 19:00 36.7 C 77 18 136/84 97 04/04/23 15:35 75 O2 Del Method O2 Flow Rate 04/05/23 13:30 Room Air 04/05/23 13:20 Room Air 04/05/23 13:00 Oxymask 4 04/05/23 13:10 Oxymask 2 04/05/23 12:50 Oxymask 6 04/05/23 08:30 04/05/23 10:10 Room Air 04/05/23 07:43 Room Air 04/05/23 04:00 Room Air 04/04/23 22:43 04/04/23 23:23 Room Air 04/04/23 19:00 Room Air 04/04/23 15:35 Pain Intensity Lower Abdomen: Pain Intensity: 2 Abdomen: Pain Intensity: 4 Transfer of Care Handoff Completed per policy Notes Mental Status: alert / awake / arousable Patient Amnestic to Procedure: Yes Nausea / Vomiting: adequately controlled Pain: adequately controlled Airway Patency, RR, SpO2: stable & adequate BP & HR: stable & adequate Hydration State: stable & adequate Anesthetic Complications: no major complications apparent
[2023-04-05] MEDS ORDERED: MoRPHine SULFATE 4 MG/ML 1 ML CARP\\VIAL IV PRN (14:17)
[2023-04-05] MEDS: LACTATED RINGER'S 1,000 ML IV SCH ×2 (14:52→22:19)
[2023-04-05] MEDS: ACETAMINOPHEN 1,000 MG/100 ML VIAL IV SCH ×2 (15:39→21:20)
--- NOTE | 2023-04-05 16:09 | Hospitalist Progress Note ---
Date of Service April 05, 2023 Assessment & Plan (1) Sepsis: (2) Diverticulitis of colon with perforation: Plan: Patient is 32-year-old male with PMH HTN, GERD, tobacco use presented to ER with complaint of lower abdominal pain and anorexia that started yesterday. Acute diverticulitis with perforation --CT abd/pelvis:Acute diverticulitis of the mid sigmoid colon with wall thickening and pericolic fat stranding. Evidence of microperforation with small foci of gas in the adjacent sigmoid mesentery. No drainable abscess. --Repeat CT abd today showed mild progression of perforated sigmoid diverticulitis but no drainable abscess -- Continue IV Zosyn, IV fluids, bowel rest --Blood culture: No growth to date Pain control Appreciate surgery input Continue conservative management S/P exploratory laparotomy with abdominal washout today NPO for now Persistent leukocytosis (3) Hyponatremia: Plan: Sodium 135 today Likely due to poor oral intake/Alcohol use Normal TSH Monitor sodium levels (4) HTN (hypertension): Plan: Hypertensive urgency Increase lisinopril to 40mg daily IV Hydralazine as needed Monitor BP Hypophosphatemia Replete electrolytes as needed (5) GERD (gastroesophageal reflux disease): Plan: Continue PPI (6) Tobacco use: Plan: Denies nicotine patch Smoking cessation encouraged (7) Elevated bilirubin: Plan: Monitor LFTs (8) Alcohol use: Plan: 6-10 drinks five times a week. Monitor for withdrawal Continue thiamine, folic acid, gabapentin per protocol ETOH cessation encouraged DVT Prophylaxis SCDs Lovenox SQ--on hold for procedure Admission and Anticipated Discharge Date Admission Date: March 30, 2023 Subjective Patient is seen and examined at bedside Patient had exploratory laparotomy with abdominal washout today Denies any significant pain postprocedure Also denies any nausea, vomiting, chest pain, dyspnea Family at bedside Review of Systems Review of Systems: All systems reviewed & are unremarkable except as noted in Subjective Physical Exam Physical Exam: Physical Exam: Vitals signs as noted above General Appearance:Obese, no apparent distress Head: normocephalic, Atraumatic Eyes: normal inspection, EOMI Neck: supple, Trachea midline Respiratory/Chest: Normal breath sounds, CTA, No accessory muscle use Cardiovascular: S1, S2, No murmur Abdomen/GI:Soft, non tender,+Abd scar, +drain, Bowel sounds present Extremities/Musculoskeletal:normal inspection, no edema Neurologic/Psych:AAOX3, grossly no focal neurological deficits Skin: normal color, warm Results & Data Results & Data Vital Signs (Past 12 Hours) Vital Signs Temp Pulse Pulse Resp BP Pulse Ox O2 Del Method 04/05/23 14:52 36.8 C 80 20 143/88 H 97 Nasal Cannula 04/05/23 14:22 36.8 C 88 18 144/89 H 99 Nasal Cannula 04/05/23 14:00 79 13 138/88 96 Room Air 04/05/23 13:50 82 12 140/96 95 Room Air 04/05/23 13:40 36.9 C 83 21 145/90 H 97 Room Air 04/05/23 13:30 82 12 130/73 94 Room Air 04/05/23 13:20 14 L 13 144/89 H 98 Room Air 04/05/23 13:00 91 H 12 146/97 H 100 Oxymask 04/05/23 13:10 95 H 13 151/88 H 96 Oxymask 04/05/23 12:50 36.2 C L 92 H 16 160/96 H 99 Oxymask 04/05/23 08:30 66 04/05/23 10:10 37.0 C 96 H 20 162/98 H 97 Room Air 04/05/23 07:43 36.7 C 94 H 18 142/89 H 92 Room Air O2 Flow Rate 04/05/23 14:52 2 04/05/23 14:22 2 04/05/23 14:00 04/05/23 13:50 04/05/23 13:40 04/05/23 13:30 04/05/23 13:20 04/05/23 13:00 4 04/05/23 13:10 2 04/05/23 12:50 6 04/05/23 08:30 04/05/23 10:10 04/05/23 07:43 Laboratory Results Short CBC 04/05/23 Range/Units 05:38 WBC 13.15 H (4.8-10.8) K/ul Hgb 15.0 (14.0-18.0) g/dl Hct 42.9 (42.0-52.0) % Plt Count 274 (130-400) K/uL BMP 04/05/23 05:38 Sodium 135 L Potassium 4.3 Chloride 100 Carbon Dioxide 27 BUN 4 L Creatinine 0.75 Glucose 70 Calcium 9.5
[2023-04-05] MEDS: hydrOXYzine HCl 10 MG TAB PO PRN (20:03)
[2023-04-05] MEDS: MoRPHine SULFATE 2 MG/ML CARP IV PRN (22:16)
[2023-04-06] MEDS: MoRPHine SULFATE 2 MG/ML CARP IV PRN (02:22)
[2023-04-06] MEDS: PIPERACILLIN/TAZOBACTAM 4.5 GM in DEXTROSE 5% 100 ML IV SCH ×3 (02:23→18:19)
[2023-04-06] MEDS: ACETAMINOPHEN 1,000 MG/100 ML VIAL IV SCH ×3 (05:44→22:03)
[2023-04-06] MEDS: LACTATED RINGER'S 1,000 ML IV SCH ×3 (05:49→22:30)
[2023-04-06 06:58] LABS: Basophils # (auto) 0.05 K/uL (0-0.2); Basophils % (auto) 0.4 %; Eosinophils # (auto) 0.01 K/uL (0-0.50); Eosinophils % (auto) 0.1 %; Hematocrit (blood only) 43.6 % (42.0-52.0); Hemoglobin 15.5 g/dl (14.0-18.0); Immature Granulocytes # (auto) 0.31 K/uL (0.01-0.20); Immature Granulocytes % (auto) 2.2 %; Lymphocytes # (auto) 1.22 K/uL (1.2-3.4); Lymphocytes % (auto) 8.7 %; Mean Corpuscular Hemoglobin 34.4 pg (25.0-34.0); Mean Corpuscular Hgb Conc 35.6 g/dL (32.0-36.0); Mean Corpuscular Volume 96.7 fL (80.0-100.0); Mean Platelet Volume 10.2 fL (9.4-12.4); Monocytes # (auto) 0.79 K/uL (0.11-0.59); Monocytes % (auto) 5.7 %; Neutrophils # (auto) 11.57 K/uL (1.40-6.50); Neutrophils % (auto) 82.9 %; Platelet Count 356 K/uL (130-400); RDW Coefficient of Variation 12.2 % (11.5-14.5); Red Blood Count 4.51 M/uL (4.70-6.10); White Blood Count 13.95 K/ul (4.8-10.8)
[2023-04-06 07:14] LABS: BUN Creatinine Ratio 8.7 (10-20); Calcium 9.7 mg/dl (8.6-10.3); Creatinine Clr Calc Pharmacy 187.9 ml/min; Est GFR (African American) 147.6 ml/min; Est GFR (Non-African American) 127.4 ml/min; Magnesium 1.9 mg/dl (1.7-2.4); Potassium 4.2 mmol/L (3.5-5.1)
[2023-04-06] MEDS: THIAMINE HCL 100 MG TAB PO SCH (09:02)
[2023-04-06] MEDS: MULTIVITAMIN TAB PO SCH (09:02)
[2023-04-06] MEDS: FOLIC ACID 1 MG TAB PO SCH (09:03)
[2023-04-06] MEDS: lisinopril 40 MG TAB PO SCH (09:03)
--- NOTE | 2023-04-06 12:48 | Surgery Progress Note ---
Date of Service April 06, 2023 Assessment & Plan (1) Acute diverticulitis: Plan: POD#1 diagnostic laparoscopy, washout, and drain placement WBC 13, Vitals stable and patient afebrile. On IV zosyn He reports feeling improvement today. [place] serosang- 200cc documented since OR Keep NPO with ice/sips for today, if WBC improving and patient's symptoms continue to improve may consider resuming clear liquids tomorrow. Would go very slowly with diet advancement Pt seen/examined with Dr. Arechiga joselo surgery covering the wknd Admission and Anticipated Discharge Date Admission Date: March 30, 2023 Supervising Physician Co-Signing Physician Notes I have seen and examined this patient and I agree with the plan. Subjective Patient reports feeling better today. Having some incisional discomfort but states his lower abdominal pain is improved. No nausea/vomiting. passing flatus. No bm since OR. Physical Exam Physical Exam: awake/alert, no distress Gastrointestinal (Abdomen): Inspection/Auscultation: + abdominal surgical incision (c/d/i) and + abdominal surgical drain present (serosang. ) Percussion/Palpation: + abdomen tender (expected joi incisional discomfort ) and abdomen soft Results & Data Vital Signs (Past 12 Hours) Vital Signs Temp Pulse Pulse Resp BP BP Pulse Ox 04/06/23 11:54 37.4 C 83 20 148/87 H 97 04/06/23 08:23 36.8 C 72 18 145/84 H 96 04/06/23 07:57 75 04/06/23 04:00 36.8 C 89 18 137/84 96 O2 Del Method 04/06/23 11:54 Room Air 04/06/23 08:23 Room Air 04/06/23 07:57 04/06/23 04:00 Room Air PG Care Time/CCT Total # of Minutes Spent Total Time Spent with Patient: Total time spent is greater than 50% in coordination of care (as documented) at patient's floor/unit and/or counseling patient: Coding Level of Care Code 57682 Post Operative Follow-Up Diagnoses Acute diverticulitis K57.92
--- NOTE | 2023-04-06 16:04 | Hospitalist Progress Note ---
Date of Service April 06, 2023 Assessment & Plan (1) Sepsis: (2) Diverticulitis of colon with perforation: Plan: Patient is 32-year-old male with PMH HTN, GERD, tobacco use presented to ER with complaint of lower abdominal pain and anorexia that started yesterday. Acute diverticulitis with microperforation --CT abd/pelvis:Acute diverticulitis of the mid sigmoid colon with wall thickening and pericolic fat stranding. Evidence of microperforation with small foci of gas in the adjacent sigmoid mesentery. No drainable abscess. --Repeat CT abd today showed mild progression of perforated sigmoid diverticulitis but no drainable abscess -- Continue IV Zosyn, IV fluids, bowel rest --Blood culture: No growth to date Pain control Appreciate surgery input S/P exploratory laparotomy with abdominal washout on 04/05/2023 NPO for now and will be continued as of today 04/06/2023 Persistent leukocytosis secondary Clinically much better We will continue current management (3) Hyponatremia: Plan: Sodium 135 today Likely due to poor oral intake/Alcohol use Normal TSH Monitor sodium levels -sodium level is 134 (4) HTN (hypertension): Plan: Hypertensive urgency Increase lisinopril to 40mg daily IV Hydralazine as needed Monitor BP-remains on the upper limit of normal Hypophosphatemia Replete electrolytes as needed Normalized as on 04/01/2023 (5) GERD (gastroesophageal reflux disease): Plan: Continue PPI (6) Tobacco use: Plan: Denies nicotine patch Smoking cessation encouraged (7) Elevated bilirubin: Plan: Monitor LFTs (8) Alcohol use: Plan: 6-10 drinks five times a week. Monitor for withdrawal Continue thiamine, folic acid, gabapentin per protocol ETOH cessation encouraged DVT Prophylaxis SCDs Lovenox SQ--on hold for procedure Admission and Anticipated Discharge Date Admission Date: March 30, 2023 Subjective 04/05/2023 The patient was seen and examined in medical telemetry unit He has been feeling much better following the laparoscopic procedure He has minimal pain in the abdomen, no nausea no vomiting and has been moving gas Denies any other significant symptoms Review of Systems Review of Systems: All systems reviewed and are unremarkable except as noted below Gastrointestinal: Minimal abdominal discomfort and pain involving the surgery site Physical Exam Physical Exam: Lying in bed comfortably Constitutional: well developed, well nourished and + obese; not ill appearing Eyes: PERRL, conjunctivae normal, anicteric sclerae ENMT: external ear and nose normal, oropharynx normal Neck: trachea midline, no thyromegaly Respiratory: no respiratory distress Auscultation: lungs clear to auscultation bilaterally and + diminished lung sounds Cardiovascular: Rate/Rhythm: regular rate and regular rhythm; not tachycardic Heart Sounds: normal S1 and normal S2; no murmur Extremities: no edema Gastrointestinal (Abdomen): Inspection/Auscultation: + abdomen distended and normal bowel sounds Percussion/Palpation: + abdomen tender (Minimally tender especially at the surgery site) and abdomen soft Musculoskeletal: No acute arthritis involving any of the joint Neurologic: normal touch/pain/proprioception and moves all extremities; no focal motor deficits Psychiatric: A+Ox3, euthymic affect Lymphatic: no cervical or axillary lymphadenopathy Results & Data Results & Data Vital Signs (Past 12 Hours) Vital Signs Temp Pulse Pulse Resp BP BP Pulse Ox 04/06/23 15:46 83 04/06/23 15:36 37.4 C 82 18 150/91 H 97 04/06/23 11:54 37.4 C 83 20 148/87 H 97 04/06/23 08:23 36.8 C 72 18 145/84 H 96 04/06/23 07:57 75 04/06/23 04:00 36.8 C 89 18 137/84 96 O2 Del Method 04/06/23 15:46 04/06/23 15:36 Room Air 04/06/23 11:54 Room Air 04/06/23 08:23 Room Air 04/06/23 07:57 04/06/23 04:00 Room Air Laboratory Results Short CBC 04/06/23 Range/Units 06:16 WBC 13.95 H (4.8-10.8) K/ul Hgb 15.5 (14.0-18.0) g/dl Hct 43.6 (42.0-52.0) % Plt Count 356 (130-400) K/uL BMP 04/06/23 06:16 Sodium 134 L Potassium 4.2 Chloride 100 Carbon Dioxide 25 BUN 6 Creatinine 0.69 Glucose 90 Calcium 9.7 Medications Administered Current Inpatient Medications Enoxaparin Sodium (Enoxaparin Inj 40 Mg/0.4 Ml Syr) 40 mg SQ QAM [facility] Stop: 05/03/23 08:59 Last Admin: 04/04/23 09:38 Dose: 40 mg Folic Acid (Folic Acid 1 Mg Tab) 1 mg PO QAM [facility] Stop: 04/30/23 08:59 Last Admin: 04/06/23 09:03 Dose: 1 mg Hydralazine HCl (Hydralazine Hcl 20 Mg/Ml Vial) 10 mg IV Q6H PRN PRN Reason: HypertensionSBP>180orDBP>100 Stop: 05/04/23 15:34 Hydroxyzine HCl (Hydroxyzine Hcl 10 Mg Tab) 10 mg PO Q8H PRN PRN Reason: Anxiety Stop: 05/03/23 12:25 Last Admin: 04/05/23 20:03 Dose: 10 mg Piperacillin Sod/Tazobactam (Sod 4.5 gm/ Dextrose) 120 mls @ 30 mls/hr IV Q8H [facility]; Protocol Stop: 04/10/23 01:59 Last Infusion: 04/06/23 14:15 Dose: Infused Acetaminophen (Ofirmev) 1,000 mg in 100 mls @ 400 mls/hr IV Q8H [facility] Stop: 04/08/23 14:16 Last Infusion: 04/06/23 14:41 Dose: Infused Lactated Ringer's (Lr) 1,000 mls @ 125 mls/hr IV .Q8H [facility] Stop: 05/05/23 14:16 Last Admin: 04/06/23 14:28 Dose: 125 mls/hr Lisinopril (Lisinopril 40 Mg Tab) [facility] Stop: 05/05/23 08:59 Last Admin: 04/06/23 09:03 Dose: 40 mg Lorazepam (Lorazepam 2 Mg/1 Ml Vial) 1 mg IV ONE PRN; Protocol PRN Reason: EtoH Withdrawal AWSS 6,7,8,9,1 Morphine Sulfate (Morphine Sulfate 2 Mg/Ml Carp) 2 mg IV Q3H PRN PRN Reason: Moderate Pain (Scale 4, 5, 6) Stop: 04/19/23 14:16 Last Admin: 04/06/23 02:22 Dose: 2 mg Morphine Sulfate (Morphine Sulfate 4 Mg/Ml 1 Ml Carp\Vial) 4 mg IV Q3H PRN PRN Reason: Severe Pain (Scale 7, 8, 9,10) Stop: 04/19/23 14:16 Multivitamins (Multivitamin Tab) 1 tab [facility] [place] Stop: 05/01/23 08:59 Last Admin: 04/06/23 09:02 Dose: 1 tab Ondansetron HCl (Ondansetron Inj 2 Mg/Ml 2 Ml Vial) 4 mg IV Q6H PRN PRN Reason: Nausea Stop: 04/29/23 22:34 Thiamine HCl (Thiamine Hcl 100 Mg Tab) 100 mg [facility] [place] Stop: 04/30/23 08:59 Last Admin: 04/06/23 09:02 Dose: 100 mg
[2023-04-06] MEDS: hydrOXYzine HCl 10 MG TAB PO PRN (17:02)
[2023-04-07] MEDS: PIPERACILLIN/TAZOBACTAM 4.5 GM in DEXTROSE 5% 100 ML IV SCH ×3 (02:53→17:26)
[2023-04-07] MEDS: LACTATED RINGER'S 1,000 ML IV SCH ×3 (05:37→21:47)
[2023-04-07] MEDS: ACETAMINOPHEN 1,000 MG/100 ML VIAL IV SCH ×3 (05:37→21:49)
--- NOTE | 2023-04-07 06:34 | Surgery Progress Note ---
Date of Service April 07, 2023 Assessment & Plan (1) Acute diverticulitis: Plan: POD#2 diagnostic laparoscopy, washout, and drain placement Vitals stable and patient afebrile. On IV zosyn He reports feeling improvement today. [place] serosang Advance diet to clears Admission and Anticipated Discharge Date Admission Date: March 30, 2023 Subjective Feeling better today. Some discomfort. No nausea or vomiting. Physical Exam Gastrointestinal (Abdomen): Inspection/Auscultation: + abdominal surgical incision (c/d/i) and + abdominal surgical drain present (serosang. ) Percussion/Palpation: + abdomen tender (expected joi incisional discomfort ) and abdomen soft Results & Data Vital Signs (Past 12 Hours) Vital Signs Temp Pulse Pulse Resp BP BP Pulse Ox 04/07/23 02:50 36.7 C 76 18 160/99 H 95 04/06/23 22:02 67 04/06/23 22:00 36.7 C 76 18 162/88 H 95 04/06/23 21:00 04/06/23 19:00 36.7 C 58 L 18 153/88 H 96 O2 Del Method 04/07/23 02:50 Room Air 04/06/23 22:02 04/06/23 22:00 Room Air 04/06/23 21:00 Room Air 04/06/23 19:00 Room Air
[2023-04-07 06:51] LABS: BUN Creatinine Ratio 8.8 (10-20); Calcium 9.4 mg/dl (8.6-10.3); Creatinine Clr Calc Pharmacy 191.4 ml/min; Est GFR (African American) 148.5 ml/min; Est GFR (Non-African American) 128.2 ml/min; Magnesium 1.8 mg/dl (1.7-2.4); Phosphorus 3.2 mg/dl (2.5-4.9); Potassium 3.7 mmol/L (3.5-5.1)
[2023-04-07 07:17] LABS: Basophils # (auto) 0.06 K/uL (0-0.2); Basophils % (auto) 0.6 %; Eosinophils # (auto) 0.12 K/uL (0-0.50); Eosinophils % (auto) 1.2 %; Hematocrit (blood only) 42.7 % (42.0-52.0); Hemoglobin 15.2 g/dl (14.0-18.0); Immature Granulocytes # (auto) 0.22 K/uL (0.01-0.20); Immature Granulocytes % (auto) 2.2 %; Lymphocytes # (auto) 2.18 K/uL (1.2-3.4); Mean Corpuscular Hemoglobin 34.4 pg (25.0-34.0); Mean Corpuscular Hgb Conc 35.6 g/dL (32.0-36.0); Mean Corpuscular Volume 96.6 fL (80.0-100.0); Mean Platelet Volume 10.5 fL (9.4-12.4); Monocytes # (auto) 0.88 K/uL (0.11-0.59); Monocytes % (auto) 8.9 %; Neutrophils # (auto) 6.44 K/uL (1.40-6.50); Neutrophils % (auto) 65.1 %; Platelet Count 330 K/uL (130-400); RDW Coefficient of Variation 12.6 % (11.5-14.5); Red Blood Count 4.42 M/uL (4.70-6.10)
[2023-04-07] MEDS: THIAMINE HCL 100 MG TAB PO SCH (08:30)
[2023-04-07] MEDS: lisinopril 40 MG TAB PO SCH (08:30)
[2023-04-07] MEDS: MULTIVITAMIN TAB PO SCH (08:30)
[2023-04-07] MEDS: FOLIC ACID 1 MG TAB PO SCH (08:30)
--- NOTE | 2023-04-07 14:05 | Hospitalist Progress Note ---
Date of Service April 07, 2023 Assessment & Plan (1) Sepsis: (2) Diverticulitis of colon with perforation: Plan: Patient is 32-year-old male with PMH HTN, GERD, tobacco use presented to ER with complaint of lower abdominal pain and anorexia that started yesterday. Acute diverticulitis with microperforation --CT abd/pelvis:Acute diverticulitis of the mid sigmoid colon with wall thickening and pericolic fat stranding. Evidence of microperforation with small foci of gas in the adjacent sigmoid mesentery. No drainable abscess. --Repeat CT abd today showed mild progression of perforated sigmoid diverticulitis but no drainable abscess -- Continue IV Zosyn, IV fluids, bowel rest --Blood culture: No growth to date Pain control Appreciate surgery input S/P exploratory laparotomy with abdominal washout on 04/05/2023 NPO for now and will be continued as of today 04/06/2023 Leukocytosis has resolved Clinically much better and clears have been restarted We will continue current management (3) Hyponatremia: Plan: Sodium 135 today Likely due to poor oral intake/Alcohol use Normal TSH Monitor sodium levels -sodium level is 134 Sodium level has been normalized (4) HTN (hypertension): Plan: Hypertensive urgency Increase lisinopril to 40mg daily IV Hydralazine as needed Monitor BP-remains on the upper limit of normal Hypophosphatemia Replete electrolytes as needed Normalized as on 04/01/2023 and maintaining (5) GERD (gastroesophageal reflux disease): Plan: Continue PPI (6) Tobacco use: Plan: Denies nicotine patch Smoking cessation encouraged (7) Elevated bilirubin: Plan: Monitor LFTs (8) Alcohol use: Plan: 6-10 drinks five times a week. Monitor for withdrawal Continue thiamine, folic acid, gabapentin per protocol ETOH cessation encouraged DVT Prophylaxis SCDs Will give Lovenox subcu Admission and Anticipated Discharge Date Admission Date: March 30, 2023 Subjective 04/06/2023 The patient was seen and examined in medical telemetry unit He has been feeling much better following the laparoscopic procedure He has minimal pain in the abdomen, no nausea no vomiting and has been moving gas Denies any other significant symptoms 04/07/2023 The patient was seen and examined in medical telemetry unit He has been feeling a lot better Minimal abdominal discomfort without any other symptoms Clears have been started by the surgery team Review of Systems Review of Systems: All systems reviewed and are unremarkable except as noted below Gastrointestinal: Minimal abdominal discomfort and pain involving the surgery site Physical Exam Physical Exam: Lying in bed comfortably Constitutional: well developed, well nourished and + obese; not ill appearing Eyes: PERRL, conjunctivae normal, anicteric sclerae ENMT: external ear and nose normal, oropharynx normal Neck: trachea midline, no thyromegaly Respiratory: no respiratory distress Auscultation: lungs clear to aus cultation bilaterally and + diminished lung sounds Cardiovascular: Rate/Rhythm: regular rate and regular rhythm; not tachycardic Heart Sounds: normal S1 and normal S2; no murmur Extremities: no edema Gastrointestinal (Abdomen): Inspection/Auscultation: + abdomen distended and normal bowel sounds Percussion/Palpation: + abdomen tender (Minimally tender especially at the surgery site) and abdomen soft Neurologic: normal touch/pain/proprioception and moves all extremities; no focal motor deficits Psychiatric: A+Ox3, euthymic affect Lymphatic: no cervical or axillary lymphadenopathy Results & Data Results & Data Vital Signs (Past 12 Hours) Vital Signs Temp Pulse Pulse Resp BP Pulse Ox Pulse Ox 04/07/23 13:08 88 154/91 H 04/07/23 13:00 95 04/07/23 11:49 36.4 C L 74 18 162/104 H 96 04/07/23 07:49 37.1 C 55 L 16 155/90 H 96 04/07/23 07:24 53 L 04/07/23 02:50 36.7 C 76 18 160/99 H 95 O2 Del Method O2 Del Method 04/07/23 13:08 04/07/23 13:00 Room Air 04/07/23 11:49 Room Air 04/07/23 07:49 Room Air 04/07/23 07:24 04/07/23 02:50 Room Air Laboratory Results Short CBC 04/07/23 Range/Units 06:15 WBC 9.90 (4.8-10.8) K/ul Hgb 15.2 (14.0-18.0) g/dl Hct 42.7 (42.0-52.0) % Plt Count 330 (130-400) K/uL BMP 04/07/23 06:15 Sodium 138 Potassium 3.7 Chloride 103 Carbon Dioxide 25 BUN 6 Creatinine 0.68 Glucose 88 Calcium 9.4 Medications Administered Current Inpatient Medications Enoxaparin Sodium (Enoxaparin Inj 40 Mg/0.4 Ml Syr) [facility] Stop: 05/03/23 08:59 Last Admin: 04/04/23 09:38 Dose: 40 mg Folic Acid (Folic Acid 1 Mg Tab) [facility] [place] Stop: 04/30/23 08:59 Last Admin: 04/07/23 08:30 Dose: 1 mg Hydralazine HCl (Hydralazine Hcl 20 Mg/Ml Vial) 10 mg IV Q6H PRN PRN Reason: HypertensionSBP>180orDBP>100 Stop: 05/04/23 15:34 Last Admin: 04/07/23 11:47 Dose: 10 mg Hydroxyzine HCl (Hydroxyzine Hcl 10 Mg Tab) 10 mg PO Q8H PRN PRN Reason: Anxiety Stop: 05/03/23 12:25 Last Admin: 04/06/23 17:02 Dose: 10 mg Piperacillin Sod/Tazobactam (Sod 4.5 gm/ Dextrose) 120 mls @ 30 mls/hr IV Q8H [facility]; Protocol Stop: 04/10/23 01:59 Last Infusion: 04/07/23 13:48 Dose: Infused Acetaminophen (Ofirmev) 1,000 mg in 100 mls @ 400 mls/hr IV Q8H [facility] Stop: 04/08/23 14:16 Last Admin: 04/07/23 13:53 Dose: 400 mls/hr Lactated Ringer's (Lr) 1,000 mls @ 125 mls/hr IV .Q8H [facility] Stop: 05/05/23 14:16 Last Admin: 04/07/23 13:53 Dose: 125 mls/hr Lisinopril (Lisinopril 40 Mg Tab) 40 mg PO [facility] Stop: 05/05/23 08:59 Last Admin: 04/07/23 08:30 Dose: 40 mg Lorazepam (Lorazepam 2 Mg/1 Ml Vial) 1 mg IV ONE PRN; Protocol PRN Reason: EtoH Withdrawal AWSS 6,7,8,9,1 Morphine Sulfate (Morphine Sulfate 2 Mg/Ml Carp) 2 mg IV Q3H PRN PRN Reason: Moderate Pain (Scale 4, 5, 6) Stop: 04/19/23 14:16 Last Admin: 04/06/23 02:22 Dose: 2 mg Morphine Sulfate (Morphine Sulfate 4 Mg/Ml 1 Ml Carp\Vial) 4 mg IV Q3H PRN PRN Reason: Severe Pain (Scale 7, 8, 9,10) Stop: 04/19/23 14:16 Multivitamins (Multivitamin Tab) 1 tab PO [facility] Stop: 05/01/23 08:59 Last Admin: 04/07/23 08:30 Dose: 1 tab Ondansetron HCl (Ondansetron Inj 2 Mg/Ml 2 Ml Vial) 4 mg IV Q6H PRN PRN Reason: Nausea Stop: 04/29/23 22:34 Thiamine HCl (Thiamine Hcl 100 Mg Tab) 100 mg PO [facility] Stop: 04/30/23 08:59 Last Admin: 04/07/23 08:30 Dose: 100 mg
[2023-04-07] MEDS: ENOXAPARIN INJ 40 MG/0.4 ML SYR SQ SCH (15:35)
[2023-04-07] MEDS: hydrOXYzine HCl 10 MG TAB PO PRN (18:13)
[2023-04-08] MEDS: PIPERACILLIN/TAZOBACTAM 4.5 GM in DEXTROSE 5% 100 ML IV SCH ×2 (03:39→09:38)
[2023-04-08] MEDS: LACTATED RINGER'S 1,000 ML IV SCH ×2 (05:29→13:10)
[2023-04-08] MEDS: ACETAMINOPHEN 1,000 MG/100 ML VIAL IV SCH (05:29)
[2023-04-08 06:21] LABS: Basophils # (auto) 0.08 K/uL (0-0.2); Basophils % (auto) 0.7 %; Eosinophils # (auto) 0.24 K/uL (0-0.50); Eosinophils % (auto) 2.2 %; Hematocrit (blood only) 43.9 % (42.0-52.0); Hemoglobin 15.3 g/dl (14.0-18.0); Immature Granulocytes # (auto) 0.37 K/uL (0.01-0.20); Immature Granulocytes % (auto) 3.3 %; Lymphocytes # (auto) 2.01 K/uL (1.2-3.4); Lymphocytes % (auto) 18.2 %; Mean Corpuscular Hemoglobin 33.6 pg (25.0-34.0); Mean Corpuscular Hgb Conc 34.9 g/dL (32.0-36.0); Mean Corpuscular Volume 96.5 fL (80.0-100.0); Mean Platelet Volume 10.1 fL (9.4-12.4); Monocytes # (auto) 1.08 K/uL (0.11-0.59); Monocytes % (auto) 9.8 %; Neutrophils # (auto) 7.27 K/uL (1.40-6.50); Neutrophils % (auto) 65.8 %; Platelet Count 363 K/uL (130-400); RDW Coefficient of Variation 12.6 % (11.5-14.5); RDW Standard Deviation 45.1 fL (36.4-46.3); Red Blood Count 4.55 M/uL (4.70-6.10); White Blood Count 11.05 K/ul (4.8-10.8)
[2023-04-08 06:36] LABS: BUN Creatinine Ratio 5.7 (10-20); Calcium 9.4 mg/dl (8.6-10.3); Creatinine Clr Calc Pharmacy 185.5 ml/min; Est GFR (African American) 146.8 ml/min; Est GFR (Non-African American) 126.6 ml/min
[2023-04-08] MEDS: THIAMINE HCL 100 MG TAB PO SCH (08:32)
[2023-04-08] MEDS: lisinopril 40 MG TAB PO SCH (08:32)
[2023-04-08] MEDS: FOLIC ACID 1 MG TAB PO SCH (08:32)
[2023-04-08] MEDS: MULTIVITAMIN TAB PO SCH (08:32)
[2023-04-08] MEDS: ENOXAPARIN INJ 40 MG/0.4 ML SYR SQ SCH (08:33)
--- NOTE | 2023-04-08 11:27 | Surgery Progress Note ---
Date of Service April 08, 2023 Assessment & Plan (1) Acute diverticulitis: Plan: POD#3 diagnostic laparoscopy, washout, and drain placement Vitals stable and patient afebrile. On IV zosyn He reports feeling improvement today. [place] serosang Advance diet to low fiber diet Admission and Anticipated Discharge Date Admission Date: March 30, 2023 Subjective Feeling much better. Very anxious to leave. Denies nausea or vomiting. Tolerating full liquids. Physical Exam Gastrointestinal (Abdomen): Inspection/Auscultation: + abdominal surgical incision (c/d/i) and + abdominal surgical drain present (serosang. ) Percussion/Palpation: + abdomen tender (expected joi incisional discomfort ) and abdomen soft Results & Data Vital Signs (Past 12 Hours) Vital Signs Temp Pulse Pulse Resp BP Pulse Ox O2 Del Method 04/08/23 07:19 36.8 C 64 16 149/95 H 97 Room Air 04/08/23 06:49 63 04/08/23 03:00 36.8 C 71 18 145/94 H 97 Room Air
[2023-04-08] MEDS ORDERED: CIPROFLOXACIN 500 MG TAB PO SCH (12:15)
[2023-04-08] MEDS ORDERED: metroNIDAZOLE 500 MG TAB PO SCH (12:15)
--- NOTE | 2023-04-08 13:19 | Hospitalist Progress Note ---
Date of Service April 08, 2023 Assessment & Plan (1) Sepsis: (2) Diverticulitis of colon with perforation: Plan: Patient is 32-year-old male with PMH HTN, GERD, tobacco use presented to ER with complaint of lower abdominal pain and anorexia that started yesterday. Acute diverticulitis with microperforation --CT abd/pelvis:Acute diverticulitis of the mid sigmoid colon with wall thickening and pericolic fat stranding. Evidence of microperforation with small foci of gas in the adjacent sigmoid mesentery. No drainable abscess. --Repeat CT abd today showed mild progression of perforated sigmoid diverticulitis but no drainable abscess -- Continue IV Zosyn, IV fluids, bowel rest --Blood culture: No growth to date Pain control Appreciate surgery input S/P exploratory laparotomy with abdominal washout on 04/05/2023 NPO for now and will be continued as of today 04/06/2023 Leukocytosis has resolved Clinically much better and clears have been restarted Has been tolerating clears without any significant symptoms Remains afebrile with normalization of the white count and the [place] drain is draining very minimal serosanguineous fluid Discussed with the surgeon and the patient will be discharged this afternoon on oral antibiotic to finish the course of a total of 14 days We will make arrangement to see [facility] in about 5 to 7 days (3) Hyponatremia: Plan: Sodium 135 today Likely due to poor oral intake/Alcohol use Normal TSH Monitor sodium levels -sodium level is 134 Sodium level has been normalized (4) HTN (hypertension): Plan: Hypertensive urgency Increase lisinopril to 40mg daily IV Hydralazine as needed Monitor BP-remains on the upper limit of normal Hypophosphatemia Replete electrolytes as needed Normalized as on 04/01/2023 and maintaining (5) GERD (gastroesophageal reflux disease): Plan: Continue PPI (6) Tobacco use: Plan: Denies nicotine patch Smoking cessation encouraged (7) Elevated bilirubin: Plan: Monitor LFTs (8) Alcohol use: Plan: 6-10 drinks five times a week. Monitor for withdrawal Continue thiamine, folic acid, gabapentin per protocol ETOH cessation encouraged DVT Prophylaxis SCDs Will give Lovenox subcu Will be discharged home this afternoon Admission and Anticipated Discharge Date Admission Date: March 30, 2023 Subjective 04/06/2023 The patient was seen and examined in medical telemetry unit He has been feeling much better following the laparoscopic procedure He has minimal pain in the abdomen, no nausea no vomiting and has been moving gas Denies any other significant symptoms 04/07/2023 The patient was seen and examined in medical telemetry unit He has been feeling a lot better Minimal abdominal discomfort without any other symptoms Clears have been started by the surgery team 04/08/2023 The patient was seen and examined in medical telemetry unit He has been feeling much better and he still has [place] drain in situ which is not draining much fluid He has been tolerating low fiber diet without any abdominal discomfort, pain, nausea and or vomiting or distention He has been moving his bowels regularly He desperately wants to go home Review of Systems Review of Systems: All systems reviewed and are unremarkable except as noted below Gastrointestinal: Minimal abdominal discomfort and pain involving the surgery site Physical Exam Physical Exam: Lying in bed comfortably Constitutional: well developed, well nourished and + obese; not ill appearing Eyes: PERRL, conjunctivae normal, anicteric sclerae ENMT: external ear and nose normal, oropharynx normal Neck: trachea midline, no thyromegaly Respiratory: no respiratory distress Auscultation: lungs clear to auscultation bilaterally and + diminished lung sounds Cardiovascular: Rate/Rhythm: regular rate and regular rhythm; not tachycardic Heart Sounds: normal S1 and normal S2; no murmur Extremities: no edema Gastrointestinal (Abdomen): Inspection/Auscultation: normal bowel sounds; abdomen not distended Percussion/Palpation: + abdomen tender (Minimally tender especially at the surgery site) and abdomen soft Neurologic: normal touch/pain/proprioception and moves all extremities; no focal motor deficits Psychiatric: A+Ox3, euthymic affect Lymphatic: no cervical or axillary lymphadenopathy Results & Data Results & Data Vital Signs (Past 12 Hours) Vital Signs Temp Pulse Pulse Resp BP Pulse Ox Pulse Ox 04/08/23 13:00 99 04/08/23 11:20 36.5 C 74 17 148/107 H 97 04/08/23 07:19 36.8 C 64 16 149/95 H 97 04/08/23 06:49 63 04/08/23 03:00 36.8 C 71 18 145/94 H 97 O2 Del Method O2 Del Method 04/08/23 13:00 Room Air 04/08/23 11:20 Room Air 04/08/23 07:19 Room Air 04/08/23 06:49 04/08/23 03:00 Room Air Laboratory Results Short CBC 04/08/23 Range/Units 05:47 WBC 11.05 H (4.8-10.8) K/ul Hgb 15.3 (14.0-18.0) g/dl Hct 43.9 (42.0-52.0) % Plt Count 363 (130-400) K/uL BMP 04/08/23 05:47 Sodium 137 Potassium 4.0 Chloride 103 Carbon Dioxide 25 BUN 4 L Creatinine 0.70 Glucose 90 Calcium 9.4 Medications Administered Current Inpatient Medications Ciprofloxacin (Ciprofloxacin 500 Mg Tab) 500 mg PO BID [facility]; Protocol Stop: 04/18/23 12:14 Last Admin: 04/08/23 13:10 Dose: 500 mg Enoxaparin Sodium (Enoxaparin Inj 40 Mg/0.4 Ml Syr) 40 mg SQ QAM [facility] Stop: 05/03/23 08:59 Last Admin: 04/04/23 09:38 Dose: 40 mg Enoxaparin Sodium (Enoxaparin Inj 40 Mg/0.4 Ml Syr) 40 mg SQ QAM [facility] Stop: 05/07/23 14:14 Last Admin: 04/08/23 08:33 Dose: 40 mg Folic Acid (Folic Acid 1 Mg Tab) 1 mg PO QAM [facility] Stop: 04/30/23 08:59 Last Admin: 04/08/23 08:32 Dose: 1 mg Hydralazine HCl (Hydralazine Hcl 20 Mg/Ml Vial) 10 mg IV Q6H PRN PRN Reason: HypertensionSBP>180orDBP>100 Stop: 05/04/23 15:34 Last Admin: 04/07/23 11:47 Dose: 10 mg Hydroxyzine HCl (Hydroxyzine Hcl 10 Mg Tab) 10 mg PO Q8H PRN PRN Reason: Anxiety Stop: 05/03/23 12:25 Last Admin: 04/07/23 18:13 Dose: 10 mg Acetaminophen (Ofirmev) 1,000 mg in 100 mls @ 400 mls/hr IV Q8H [facility] Stop: 04/08/23 14:16 Last Infusion: 04/08/23 05:51 Dose: Infused Lactated Ringer's (Lr) 1,000 mls @ 125 mls/hr IV .Q8H [facility] Stop: 05/05/23 14:16 Last Admin: 04/08/23 13:10 Dose: 125 mls/hr Lisinopril (L[facility]opril 40 Mg Tab) [facility] [place]: 05/05/23 08:59 Last Admin: 04/08/23 08:32 Dose: 40 mg Lorazepam (Lorazepam 2 Mg/1 Ml Vial) 1 mg IV ONE PRN; Protocol PRN Reason: EtoH Withdrawal AWSS 6,7,8,9,1 Metronidazole (Metronidazole 500 Mg Tab) 500 mg PO BID [facility]; Protocol Stop: 04/18/23 12:14 Last Admin: 04/08/23 13:10 Dose: 500 mg Morphine Sulfate (Morphine Sulfate 2 Mg/Ml Carp) 2 mg IV Q3H PRN PRN Reason: Moderate Pain (Scale 4, 5, 6) Stop: 04/19/23 14:16 Last Admin: 04/06/23 02:22 Dose: 2 mg Morphine Sulfate (Morphine Sulfate 4 Mg/Ml 1 Ml Carp\Vial) 4 mg IV Q3H PRN PRN Reason: Severe Pain (Scale 7, 8, 9,10) Stop: 04/19/23 14:16 Multivitamins (Multivitamin Tab) 1 tab PO [facility] Stop: 05/01/23 08:59 Last Admin: 04/08/23 08:32 Dose: 1 tab Ondansetron HCl (Ondansetron Inj 2 Mg/Ml 2 Ml Vial) 4 mg IV Q6H PRN PRN Reason: Nausea Stop: 04/29/23 22:34 Thiamine HCl (Thiamine Hcl 100 Mg Tab) 100 mg PO [facility] Stop: 04/30/23 08:59 Last Admin: 04/08/23 08:32 Dose: 100 mg
--- NOTE | 2023-04-08 16:51 | Discharge Summary ---
Date of Service April 08, 2023 Admission HPI Per Admitting Provider Patient is 32-year-old male with PMH HTN, GERD, tobacco use presented to ER with complaint of lower abdominal pain that started yesterday. Patient reports pain is sharp and across mid lower and left lower abdomen. Pain has been persistent. Also reports some nausea. Denies vomiting. Reports decreased appetite. States last ate yesterday. Did not eat or drink today. Did not have lisinopril today. No BM yesterday. Reports BM this morning with liquid stool. Reports drinks 6-10 beers 5 times a week. Last drink 2 days ago. Denies history of alcohol withdrawal, seizures or DTs. Denies fever/chills, diaphoresis, melena, hematochezia, HAYNES, dizziness, syncope, CP, SOB, cough, weakness, extremity edema, rashes, urinary symptoms. Denies history of abdominal surgery. In ER found to have leukocytosis, CT abdomen pelvis consistent with diverticulitis with microperforation. Patient being admitted to hospital for further treatment and evaluation. Admission Exam Per Admitting Provider Physical Exam: General: +ill appearing, overweight male Head: normocephalic, atraumatic Eyes: conjunctiva non-injected, anicteric ENT: normal inspection external ears, nose, mucous membranes dry Neck: supple, trachea midline Lungs: clear, no respiratory distress, no wheezing/rhonchi/rales CV: RRR, no murmur, no pretibial edema Abd: normal BS, soft, + diffuse tenderness to palpation, greater tenderness to LLQ with some guarding Ext: no cyanosis, no calf tenderness Neuro: A&O x 3, no focal deficits noted, normal affect Skin: warm, dry Principal Diagnosis acute diverticulitis with microperforation diagnostic laparoscopy, abdominal washout Discharge Exam Lying in bed comfortably Constitutional well developed, well nourished and + obese; not ill appearing Eyes PERRL, conjunctivae normal, anicteric sclerae ENMT external ear and nose normal, oropharynx normal Neck trachea midline, no thyromegaly Respiratory no respiratory distress Auscultation: lungs clear to auscultation bilaterally and + diminished lung sounds Cardiovascular Rate/Rhythm: regular rate and regular rhythm; not tachycardic Heart Sounds: normal S1 and normal S2; no murmur Extremities: no edema Gastrointestinal (Abdomen) Inspection/Auscultation: normal bowel sounds; abdomen not distended Percussion/Palpation: + abdomen tender (Minimally tender especially at the surgery site) and abdomen soft Neurologic normal touch/pain/proprioception and moves all extremities; no focal motor deficits Psychiatric A+Ox3, euthymic affect Lymphatic no cervical or axillary lymphadenopathy Discharge Data Allergies Allergy/AdvReac Type Severity Reaction Status Date / Time No Known Allergies Allergy Verified 03/30/23 17:21 Consultations 03/30/23 19:22 ED Decision to Admit Stat 03/30/23 22:35 Consult General Surgery Routine Procedures Performed Operation Date: 04/05/23 15:10 Actual Procedures p Exploratory Laparoscopic, abdominal washout.(Not Applicable) - Sienna Arechiga DO Ordered Studies 03/30/23 16:23 CT abd pelvis IV con only Stat 04/04/23 10:27 CT Abd and Pelvis [CT abd pelvis IV con only] Urgent Hospital Course (1) Sepsis: (2) Diverticulitis of colon with perforation: Patient is 32-year-old male with PMH HTN, GERD, tobacco use presented to ER with complaint of lower abdominal pain and anorexia that started yesterday. Acute diverticulitis with microperforation --CT abd/pelvis:Acute diverticulitis of the mid sigmoid colon with wall thickening and pericolic fat stranding. Evidence of microperforation with small foci of gas in the adjacent sigmoid mesentery. No drainable abscess. --Repeat CT abd today showed mild progression of perforated sigmoid dive rticulitis but no drainable abscess -- Continue IV Zosyn, IV fluids, bowel rest --Blood culture: No growth to date Pain control Appreciate surgery input S/P exploratory laparotomy with abdominal washout on 04/05/2023 NPO for now and will be continued as of today 04/06/2023 Leukocytosis has resolved Clinically much better and clears have been restarted Has been tolerating clears without any significant symptoms Remains afebrile with normalization of the white count and the [place] drain is draining very minimal serosanguineous fluid Discussed with the surgeon and the patient will be discharged this afternoon on oral antibiotic to finish the course of a total of 14 days [facility] 7 [facility] (3) Hyponatremia: Sodium 135 today Likely due to poor oral intake/Alcohol use Normal TSH Monitor sodium levels -sodium level is 134 Sodium level has been normalized (4) HTN (hypertension): Hypertensive urgency Increase lisinopril to 40mg daily IV Hydralazine as needed Monitor BP-remains on the upper limit of normal Hypophosphatemia Replete electrolytes as needed Normalized as on 04/01/2023 and maintaining (5) GERD (gastroesophageal reflux disease): Continue PPI (6) Tobacco use: Denies nicotine patch Smoking cessation encouraged (7) Elevated bilirubin: Monitor LFTs (8) Alcohol use: 6-10 drinks five times a week. Monitor for withdrawal Continue thiamine, folic acid, gabapentin per protocol ETOH cessation encouraged DVT Prophylaxis SCDs Will give Lovenox subcu Will be discharged home this afternoon Total Time Total Time Spent Total Time Spent (In Minutes): 40 minutes Discharge Plan Discharge Items Patient Disposition: Home - Self-Care Reason For Visit: SEPSIS, ACUTE DIVERTICULITIS Discharge Diagnosis: acute diverticulitis with microperforation diagnostic laparoscopy, abdominal washout Condition on Discharge: Fair Activity: Per Instructions section Lifting: No more than 10 pounds Bathing Comment: may shower; no soaking in tubs/pools x 2 weeks Exercise/Sports: Wait until after follow-up appointment Driving/Machine Use: no driving if taking narcotics for pain Non-emergency contact: Primary Care Provider and Surgeon Call non-emergency contact if: you have any medication questions, your pain is not controlled, you have a fever, your temperature is above 101.5, your wound has increased redness, your wound has increased drainage and your wound pain has increased Follow-up/Referrals: Sienna Arechiga DO [Physician] - (Please call to schedule follow up in clinic within 2 weeks ) Jace To PA-C [Primary Care Provider] - Diet: Low Fiber Addtl Attending Provider Instructions: Please take precautions to avoid falls Please finish the course of antibiotic Keep appointment with your healthcare providers Your [place] drain is will be taken out during your next appointment with the surgeon Pending Studies at Discharge: No Stand-Alone Forms: My [facility] Home Inventory S[pecialists [facility], Smoking Cessation Medications and DC Order Prescriptions: New metronidazole 500 mg Tablet 500 mg PO BID 5 Days Qty: 10 0RF ciprofloxacin HCl 500 mg Tablet 500 mg PO BID 5 Days Qty: 10 0RF folic acid 1 mg Tablet 1 mg PO QAM 30 Days Qty: 30 0RF lisinopril [Zestril] 40 mg Tablet 40 mg PO QAM 30 Days Qty: 30 0RF multivitamin with folic acid [Daily-Thaddeus (with folic acid)] 400 mcg Tablet 1 tab PO QAM Qty: 30 0RF thiamine HCl (vitamin B1) 100 mg Tablet 100 mg PO QAM Qty: 30 0RF Continued omeprazole 20 mg Tablet,Delayed Release (Dr/Ec) 20 mg PO DAILY Discontinued lisinopril 20 mg tablet 20 mg PO QAM Discharge Orders: Discharge Order (Routine); Ordered 04/08/23 Ordered By: Katie Felix/Other Patient Handouts: Low-Fiber Diet Admission Data Admit Date/Time: 03/30/23 20:03 Attending Provider: Katie Zheng Admit Provider: Krystyna Porras Primary Care Provider: Jace To Other Providers: Luis Miguel Orozco ; Sienna Arechiga ; Alejo Celestin Other Interventions: Discharge Summary Assessment (RN) Last Done: 04/08/23 14:43
--- NOTE | 2023-04-09 08:27 | Electrocardiogram Report ---
Test Reason : Blood Pressure : / mmHG Vent. Rate : 083 BPM Atrial Rate : 083 BPM P-R Int : 170 ms QRS Dur : 072 ms QT Int : 364 ms P-R-T Axes : 028 008 059 degrees QTc Int : 427 ms Poor data quality, interpretation may be adversely affected Normal sinus rhythm Normal ECG No previous ECGs available Confirmed by Joel Walsh ([id number]) on 04/09/2023 8:26:59 AM Referred By: REFERRED SELF Confirmed By:Joel Walsh
== END 2023-04-08 15:21 | disposition home or self-care (01) | DRG 854 ==
LOC: ED 16:04 → 2N 20:03 → SUATTDRO 20:03 → 2N 22:11